=== PATIENT | male | born 1995 | race Hispanic/Latino ===

== ENCOUNTER 2017-03-28 20:39 | Emergency (ER) | payer OTHER ==
--- NOTE | 2017-03-28 22:02 | EDM.PDOC ---
ED HPI GENERAL MEDICAL PROBLEM - General Chief Complaint: Lower Extremity Injury/Pain Stated Complaint: right foot pain Time Seen by Provider: 03/28/17 20:52 Source of Information: Reports: Patient History Limitations: Reports: No Limitations - History of Present Illness INITIAL COMMENTS - FREE TEXT/NARRATIVE: Pt. states that he was doing hammer throw in track and field today, and feels that he twisted his R foot. He is able to bear weight, but with increased discomfort. Denies any numbness/tingling in the distal portion of the extremity. Onset Date: 03/28/17 Duration: Constant, Getting Worse Location: Reports: Lower Extremity, Right Quality: Reports: Ache, Sharp, Throbbing Severity: Severe Worsens with: Reports: Movement Right Feet Pain Score (Numeric/FACES): 8 - Related Data Allergies Allergy/AdvReac Type Severity Reaction Status Date / Time No Known Allergies Allergy Verified 03/28/17 20:42 Home Meds: Home Meds . [No Known Home Meds] 03/28/17 [History] Past Medical History - Past Health History Medical/Surgical History: Denies Medical/Surgical History Social & Family History - Tobacco Use Smoking Status *Q: Never Smoker Review of Systems - Review of Systems Review Of Systems: See Below Constitutional: Reports: No Symptoms Musculoskeletal: Reports: Foot Pain (right mid foot) Skin: Reports: No Symptoms Neurological: Reports: No Symptoms ED EXAM, GENERAL - Physical Exam Exam: See Below General Appearance: Alert, WD/WN, No Apparent Distress Extremities: Normal Inspection, Normal Range of Motion, Normal Capillary Refill , Limited Range of Motion, Other (pain to R mid foot region) Neurological: Alert, Oriented, CN II-XII Intact, Normal Cognition, Normal Gait, Normal Reflexes, No Motor/Sensory Deficits Skin Exam: Warm, Dry, Intact Course - Vital Signs Last Recorded V/S: Last Vital Signs Temp 36.9 C 03/28/17 20:43 Pulse 89 03/28/17 20:43 Resp 16 03/28/17 20:43 BP 157/79 H 03/28/17 20:43 Pulse Ox 99 03/28/17 20:43 - Orders/Labs/Meds Orders: Active Orders 24 hr Category Date Time Status Foot Comp Min 3V Rt [CR] Stat Exams 03/28/17 20:54 Taken Departure - Departure Time of Disposition: 22:03 Disposition: Home, Self-Care 01 Condition: Good Clinical Impression: Foot sprain - Discharge Information Instructions: Foot Sprain Referrals: PCP,Not In Area [Primary Care Provider] - Forms: ED Department Discharge Additional Instructions: Use crutches. Ice foot for 10-15 min every 1-2 hours. Ibuprofen 800mg every 8 hours as needed for pain. Elevate foot. Use BRET wrap for compression. - My Orders Last 24 Hours: My Active Orders 03/28/17 20:54 Foot Comp Min 3V Rt [CR] Stat - Assessment/Plan Last 24 Hours: My Active Orders 03/28/17 20:54 Foot Comp Min 3V Rt [CR] Stat
== END 2017-03-28 22:10 | disposition home or self-care (01) ==
LOC: VM.ED 20:39
DX: S93.601A Unspecified sprain of right foot, initial encounter (principal); X50.1XXA Overexertion from prolonged static or awkward postures, initial encounter
CPT/HCPCS: 73630-RT; 99283

== ENCOUNTER 2017-10-29 12:01 | Emergency (ER) | payer OTHER ==
[2017-10-29] MEDS ORDERED: Sodium Chloride 0.9% 1,000 ML IV ONE ×2 (12:04→12:51)
[2017-10-29] MEDS ORDERED: Sodium Chloride 0.9% 10 ML Syringe FLUSH PRN (12:04)
--- NOTE | 2017-10-29 12:12 | EDM.PDOC ---
ED HPI GENERAL MEDICAL PROBLEM - General Chief Complaint: General Stated Complaint: FOOTBALL INJURUY Time Seen by Provider: 10/29/17 12:03 Source of Information: Reports: Patient, EMS Notes Reviewed, RN, RN Notes Reviewed History Limitations: Reports: No Limitations - History of Present Illness INITIAL COMMENTS - FREE TEXT/NARRATIVE: Patient is brought to the ED at [facility] via EMS for severe muscle cramps. The patient had football practice this morning from 830-1030 and shortly after, the muscle cramps started. The patient was also submerged into an ice bath at some point. No trauma or injury. Patient's only complaint is muscle cramps. - Related Data Allergies Allergy/AdvReac Type Severity Reaction Status Date / Time No Known Allergies Allergy Verified 10/29/17 12:18 Home Meds: Home Meds . [No Known Home Meds] 03/28/17 [History] Past Medical History - Past Health History Medical/Surgical History: Denies Medical/Surgical History - Past Surgical History Musculoskeletal Surgical History: Reports: Other (See Below) Other Musculoskeletal Surgeries/Procedures:: surgical repair of left clavicle. ED ROS GENERAL - Review of Systems Review Of Systems: See Below Constitutional: Denies: Fever, Chills, Weakness Respiratory: Denies: Shortness of Breath, Cough Cardiovascular: Denies: Chest Pain, Palpitations GI/Abdominal: Denies: Abdominal Pain, Nausea, Vomiting Musculoskeletal: Reports: Muscle Pain, Muscle Stiffness Skin: Reports: No Symptoms Neurological: Reports: No Symptoms ED EXAM, GENERAL - Physical Exam Exam: See Below Exam Limited By: No Limitations General Appearance: Alert, No Apparent Distress Eye Exam: Bilateral Eye: Normal Inspection, PERRL Head: Atraumatic, Normocephalic Neck: Supple Respiratory/Chest: No Respiratory Distress, Lungs Clear, Normal Breath Sounds Cardiovascular: Normal Peripheral Pulses, Regular Rate, Rhythm Peripheral Pulses: 2+: Radial (L), Radial (R) GI/Abdominal: Normal Bowel Sounds, Soft, Non-Tender Extremities: Normal Inspection, Normal Capillary Refill Neurological: Alert, Oriented Skin Exam: Warm, Dry, Intact, Normal Color Course - Vital Signs Last Recorded V/S: Last Vital Signs Temp 36.3 C 10/29/17 12:02 Pulse 100 10/29/17 12:02 Resp 20 10/29/17 12:02 BP 168/82 H 10/29/17 12:02 Pulse Ox 100 10/29/17 12:02 - Orders/Labs/Meds Orders: Active Orders 24 hr Category Date Time Status Sodium Chloride 0.9% [Normal Saline] 1,000 ml Med 10/29/17 12:04 Active IV ONETIME Sodium Chloride 0.9% [Saline Flush] Med 10/29/17 12:04 Active 10 ml FLUSH ASDIRECTED PRN Peripheral IV Insertion Adult [OM.PC] Routine Oth 10/29/17 12:04 Ordered Medication Orders Sodium Chloride (Normal Saline) 1,000 mls @ 999 mls/hr IV ONETIME ONE Stop: 10/29/17 13:04 Last Admin: 10/29/17 12:08 Dose: 999 mls/hr Sodium Chloride (Saline Flush) 10 ml FLUSH ASDIRECTED PRN PRN Reason: Keep Vein Open Labs: Laboratory Tests 10/29/17 Range/Units 12:24 Sodium 135 L (136-145) mmol/L Potassium 3.4 L (3.5-5.1) mmol/L Chloride 96 L (98-107) mmol/L Carbon Dioxide 17 L (21-32) mmol/L Anion Gap 25.4 H (10-20) mmol/L BUN 18 (7-18) mg/dL Creatinine 1.8 H (0.70-1.30) mg/dL Est Cr Clr Drug Dosing TNP Estimated GFR (MDRD) 48 Glucose 90 (74-106) mg/dL Calcium 9.8 (8.5-10.1) mg/dL Magnesium 2.2 (1.8-2.4) mg/dL Meds: Medications Generic Name Dose Route Start Last Admin Trade Name Freq PRN Reason Stop Dose Admin Sodium Chloride 1,000 mls @ 999 mls/hr 10/29/17 12:04 10/29/17 12:08 Normal Saline IV 10/29/17 13:04 999 mls/hr ONETIME ONE Administration Sodium Chloride 10 ml 10/29/17 12:04 Saline Flush FLUSH ASDIRECTED PRN Keep Vein Open Departure - Departure Time of Disposition: 12:49 Disposition: Home, Self-Care 01 Condition: Good Clinical Impression: Muscle cramps, Acute kidney injury, Severe dehydration - Discharge Information *PRESCRIPTION DRUG MONITORING PROGRAM REVIEWED*: Not Applicable *COPY OF PRESCRIPTION DRUG MONITORING REPORT IN PATIENT DC: Not Applicable Instructions: Dehydration, Adult, Acute Kidney Injury, Adult, Muscle Cramps and Spasms Forms: ED Department Discharge Additional Instructions: 1. Stay well hydrated and rest 2. STRONGLY recommend NO sporting activities until Thursday at the earliest 3. Drink fluids with electrolytes 4. Call with any questions - Problem List Review Problem List Initiated/Reviewed/Updated: Yes - My Orders Last 24 Hours: My Active Orders 10/29/17 12:04 Sodium Chloride 0.9% [Normal Saline] 1,000 ml IV ONETIME Sodium Chloride 0.9% [Saline Flush] 10 ml FLUSH ASDIRECTED PRN Peripheral IV Insertion Adult [OM.PC] Routine - Assessment/Plan Last 24 Hours: My Active Orders 10/29/17 12:04 Sodium Chloride 0.9% [Normal Saline] 1,000 ml IV ONETIME Sodium Chloride 0.9% [Saline Flush] 10 ml FLUSH ASDIRECTED PRN Peripheral IV Insertion Adult [OM.PC] Routine Assessment:: Muscle cramps JESSICA secondary to dehydration
[2017-10-29 12:44] LABS: CHLORIDE,CL 96 mmol/L (98-107); SODIUM,NA 135 mmol/L (136-145)
[2017-10-29 12:46] LABS: ANION GAP 25.4 mmol/L (10-20)
== END 2017-10-29 13:37 | disposition home or self-care (01) ==
LOC: VM.ED 12:01
DX: E86.0 Dehydration (principal); N17.9 Acute kidney failure, unspecified; R25.2 Cramp and spasm
CPT/HCPCS: 36415; 80048; 83735; 96360; 99284; J7030

== ENCOUNTER 2018-10-24 18:41 | Emergency (ER) | payer OTHER ==
--- NOTE | 2018-10-24 19:45 | EDM.PDOC ---
ED HPI GENERAL MEDICAL PROBLEM - General Chief Complaint: Lower Extremity Injury/Pain Stated Complaint: CRAMPING Time Seen by Provider: 10/24/18 19:26 Source of Information: Reports: Patient History Limitations: Reports: No Limitations - History of Present Illness INITIAL COMMENTS - FREE TEXT/NARRATIVE: Patient states over the last 2 days he's been having intermittent thigh cramping that has been alternating between the left than the right he has a history of rhabdomyolysis and he does want come get checked out and make sure was not same thing he states he has been eating and drinking appropriately. He has no other complaints. He states he has been had increased activity with football practice but other than the intermittent leg cramping he feels fine. States he feels fine overall he denies any headache nausea vomiting abdominal pain cramping and any other muscle group Duration: Day(s): Quality: Reports: Other (Cramping) Severity: Mild Associated Symptoms: Reports: No Other Symptoms - Related Data Allergies Allergy/AdvReac Type Severity Reaction Status Date / Time No Known Allergies Allergy Verified 10/24/18 18:51 Home Meds: Home Meds . [No Known Home Meds] 03/28/17 [History] Past Medical History - Past Health History Medical/Surgical History: Denies Medical/Surgical History - Past Surgical History Musculoskeletal Surgical History: Reports: Other (See Below) Other Musculoskeletal Surgeries/Procedures:: surgical repair of left clavicle. Social & Family History - Tobacco Use Smoking Status *Q: Current Every Day Smoker Years of Tobacco use: 1 Packs/Tins Daily: 1 - Caffeine Use Caffeine Use: Reports: None - Recreational Drug Use Recreational Drug Use: No Review of Systems - Review of Systems Review Of Systems: See Below Constitutional: Reports: No Symptoms Eyes: Reports: No Symptoms Ears: Reports: No Symptoms Nose: Reports: No Symptoms Mouth/Throat: Reports: No Symptoms Respiratory: Reports: No Symptoms Cardiovascular: Reports: No Symptoms GI/Abdominal: Reports: No Symptoms Genitourinary: Reports: No Symptoms Musculoskeletal: Reports: Muscle Pain. Denies: Foot Pain, Joint Pain, Joint Swelling Skin: Reports: No Symptoms Neurological: Reports: No Symptoms Psychiatric: Reports: No Symptoms ED EXAM, GENERAL - Physical Exam Exam: See Below Exam Limited By: No Limitations General Appearance: Alert, WD/WN, No Apparent Distress. No: Moderate Distress Eye Exam: Bilateral Eye: EOMI (PERRLA) Nose: Normal Inspection, Normal Mucosa Throat/Mouth: Normal Inspection, Normal Lips, Normal Teeth, Normal Gums, Normal Oropharynx, Normal Voice, No Airway Compromise, Other (Moist membranes) Neck: Non-Tender, Full Range of Motion Respiratory/Chest: No Respiratory Distress, Lungs Clear, Normal Breath Sounds, No Accessory Muscle Use, Chest Non-Tender Cardiovascular: Normal Peripheral Pulses, Regular Rate, Rhythm, No Edema, No Gallop GI/Abdominal: Normal Bowel Sounds, Soft, Non-Tender, No Organomegaly Back Exam: Full Range of Motion Extremities: Normal Inspection, Normal Range of Motion, Non-Tender Neurological: Alert, Oriented, CN II-XII Intact, Normal Cognition, Normal Gait, No Motor/Sensory Deficits Psychiatric: Normal Affect, Normal Mood Skin Exam: Warm, Dry, Intact, Normal Color, No Rash Course - Vital Signs Text/Narrative:: Patient educated to increase fluids Gatorade and water actively stretched any problems follow with her primary care provider Last Recorded V/S: Last Vital Signs Temp 36.8 C 10/24/18 18:53 Pulse 72 10/24/18 18:53 Resp 14 10/24/18 18:53 BP 132/70 10/24/18 18:53 Pulse Ox 99 10/24/18 18:53 Departure - Departure Time of Disposition: 19:35 Disposition: Home, Self-Care 01 Condition: Good Clinical Impression: Muscle cramping - Discharge Information *PRESCRIPTION DRUG MONITORING PROGRAM REVIEWED*: No *COPY OF PRESCRIPTION DRUG MONITORING REPORT IN PATIENT DC: No Instructions: Muscle Cramps and Spasms, [id number] Referrals: PCP,None [Primary Care Provider] - Forms: ED Department Discharge Additional Instructions: Make sure he drinks plenty of water/Gatorade follow-up with primary care provider in the next 2-3 days Return to the emergency room for anything changes or gets worse - Problem List & Annotations (1) Muscle cramps SNOMED Code(s): 42177152 Code(s): R25.2 - CRAMP AND SPASM Status: Acute Current Visit: Yes
== END 2018-10-24 19:51 | disposition home or self-care (01) ==
LOC: VM.ED 18:41 → SUPCPDRO 18:41 → VM.ED 19:51
DX: R25.2 Cramp and spasm (principal); F17.210 Nicotine dependence, cigarettes, uncomplicated
CPT/HCPCS: 99283; 99283-GF

== ENCOUNTER 2019-12-28 10:36 | Emergency (ER) | payer OTHER ==
[2019-12-28] MEDS ORDERED: Ketorolac 30 MG/ML SDV IM ONE (11:07)
[2019-12-28] MEDS ORDERED: Orphenadrine 60 MG/2 ML Inj IM STA (11:07)
--- NOTE | 2019-12-28 11:14 | EDM.PDOC ---
ED HPI GENERAL MEDICAL PROBLEM - General Stated Complaint: LT KNEE Time Seen by Provider: 12/28/19 11:01 Source of Information: Reports: Patient History Limitations: Reports: No Limitations - History of Present Illness INITIAL COMMENTS - FREE TEXT/NARRATIVE: Patient comes emergency department today with complaints of a left knee injury. About 2 weeks ago and the patient was playing football he had an injury where he was struck in the medial aspect of the left knee. He has been seeing the personal trainer over the past couple of weeks and it has gotten better. Yesterday he woke up his knee was quite swollen and increased pain. He noticed that his knee has been a little bit more warm. He has never had any breaks in the skin laceration over the past couple of days. He has had no fever or chills. He has quite a bit of increased pain to the left knee. He has had no new injury to his left knee. Although he continues to keep working out quite extensively for football with weights and training. He is able to ambulate with quite a bit of pain. Left Knee Pain Score (Numeric/FACES): 7 - Related Data Allergies Allergy/AdvReac Type Severity Reaction Status Date / Time No Known Allergies Allergy Verified 12/28/19 12:07 Home Meds: Home Meds Hydrocodone/Acetaminophen [[place] 5-325 Tablet] 1 each PO Q6HR PRN #12 tablet 12/28/19 [Rx] Past Medical History - Past Health History Medical/Surgical History: Denies Medical/Surgical History - Past Surgical History Musculoskeletal Surgical History: Reports: Other (See Below) Other Musculoskeletal Surgeries/Procedures:: surgical repair of left clavicle. Social & Family History - Caffeine Use Caffeine Use: Reports: None Review of Systems - Review of Systems Review Of Systems: Comprehensive ROS is negative, except as noted in HPI. ED EXAM, GENERAL - Physical Exam Exam: See Below Exam Limited By: No Limitations General Appearance: Alert, WD/WN, No Apparent Distress Respiratory/Chest: No Respiratory Distress Cardiovascular: Normal Peripheral Pulses, Regular Rate, Rhythm Peripheral Pulses: 2+: Popliteal (L), Popliteal (R), Posterior Tibial (L), Posterior Tibial (R), Dorsalis Pedis (L), Dorsalis Pedis (R) Extremities: No: Normal Inspection (Patient's left knee is quite a bit more swollen than the right knee. Primarily in the prepatellar region. There is questionably may be some more warmth but no erythema. There is no joint effusion. He has tenderness throughout the knee. There is no overt bony deformity. There is no crepitus with flexion and extension. He has positive varus and valgus stress pain. Negative Lockman's and anterior drawer sign. He has normal patellar slide. There is no breaks in the skin abrasions or other signs of opening to the skin. There is no erythema injection of the area.) Neurological: Alert, Oriented, No Motor/Sensory Deficits Psychiatric: Normal Affect, Normal Mood Skin Exam: Warm, Dry, Intact, Normal Color Course - Vital Signs Last Recorded V/S: Last Vital Signs Temp 97.9 F 12/28/19 10:45 Pulse 82 12/28/19 10:45 Resp 16 12/28/19 10:45 BP 141/69 H 12/28/19 10:45 Pulse Ox 98 12/28/19 10:45 - Orders/Labs/Meds Labs: Laboratory Tests 12/28/19 12/28/19 Range/Units 11:18 11:18 WBC 16.3 H (4.0-10.0) x10^3/uL RBC 4.79 (4.5-6.0) x10^6/uL Hgb 14.6 (14.0-18.0) g/dL Hct 42.6 (40.0-52.0) % MCV 88.9 (78.0-93.0) fL MCH 30.5 (26.0-32.0) pg MCHC 34.3 (32.0-36.0) g/dL RDW Coeff of Kesha 12.7 (10.0-15.0) % Plt Count 232 (130-400) x10^3/uL Neut % (Auto) 79.9 (50.0-80.0) % Lymph % (Auto) 10.3 L (25.0-50.0) % [place] % (Auto) 9.2 (2.0-11.0) % Eos % (Auto) 0.4 (0.0-4.0) % Baso % (Auto) 0.2 (0.2-1.2) % Sodium 138 (136-145) mmol/L Potassium 4.0 (3.5-5.1) mmol/L Chloride 100 (98-107) mmol/L Carbon Dioxide 29 D (21-32) mmol/L Anion Gap 13.0 (10-20) mmol/L BUN 16 (7-18) mg/dL Creatinine 1.2 (0.70-1.30) mg/dL Est Cr Clr Drug Dosing TNP Estimated GFR (MDRD) > 60 Glucose 100 (74-106) mg/dL Calcium 9.1 (8.5-10.1) mg/dL C-Reactive Protein 11.9 H (<=0.9) mg/dL Meds: Medications Discontinued Medications Generic Name Dose Route Start Last Admin Trade Name Milly PRN Reason Stop Dose Admin Ketorolac Tromethamine 30 mg 12/28/19 11:07 12/28/19 11:18 Toradol IM 12/28/19 11:08 30 mg ONETIME ONE Administration Orphenadrine Citrate 60 mg 12/28/19 11:07 12/28/19 11:18 Norflex IM 12/28/19 11:08 60 mg NOW STA Administration - Radiology Interpretation Free Text/Narrative:: Tray is negative for any bony abnormality but there is some soft tissue swelling per radiology. - Re-Assessments/Exams Free Text/Narrative Re-Assessment/Exam: 12/28/19 18:55 The patient had a mildly elevated white blood cell count he has a normal differential. He has a mildly elevated CRP. The knee is swollen and maybe a little bit warmer than the other but the likelihood of a septic arthritis without any break in the skin is very unlikely. He has had no surgeries recently. He has no fever chills generalized malaise or fatigue. This is really the presentation of prepatellar bursitis which can have some warmth and swelling to it as well. We will put him on knee immobilizer and crutches and have him follow-up in the next week. If at anytime he develops a fever body aches chills or his knee gets worse he needs to recheck immediately. He is understanding of this and his questions are answered. Departure - Departure Time of Disposition: 12:30 Disposition: Home, Self-Care 01 Clinical Impression: Prepatellar bursitis Qualifiers: Laterality: left Qualified Code(s): M70.42 - Prepatellar bursitis, left knee - Discharge Information Prescriptions: Hydrocodone/Acetaminophen [[place] 5-325 Tablet] 1 each PO Q6HR PRN #12 tablet PRN Reason: Pain Instructions: Crutch Use, Adult, [id number], Prepatellar Bursitis Rehab- [facility], How to Use a Knee Immobilizer, [id number], Pain Medicine Instructions, [id number] Referrals: PCP,Not In Area [Primary Care Provider] - Forms: ED Department Discharge Additional Instructions: Tylenol and or Ibuprofen as needed for pain. Ice to the knee Knee immobilizer at all times. Crutches with weight as tolerated without pain. If pain not controlled with above. [place] 1 tablet every 6 hours with food as needed for pain. Caution sedation. RX sent to [facility]. Return to the ED if new or worsening. ESPECIALLY IF SWELLING IS WORSENING AND YOU DEVELOP A FEVER Follow up with ortho in the next week if not improving sooner if worse. Sepsis Event Note (ED) - Focused Exam Vital Signs: Vital Signs Temp Pulse Resp BP Pulse Ox 12/28/19 10:45 97.9 F 82 16 141/69 H 98
[2019-12-28 11:39] LABS: CHLORIDE,CL 100 mmol/L (98-107); SODIUM,NA 138 mmol/L (136-145)
--- NOTE | 2019-12-28 11:55 | CR ---
[id number] RAD/RAD Knee Left 3V EXAM: RAD Knee Left 3V CLINICAL DATA: PATELLAR BURSITIS COMPARISON: NO PREVIOUS SIMILAR EXAM IS AVAILABLE. FINDINGS: Soft tissue swelling is seen No fracture or dislocation is seen. There is no radiopaque foreign body in the soft tissues. There is no air in the soft tissues. There is no cortical thickening or periosteal reaction either. IMPRESSION: SOFT TISSUE SWELLING ONLY Fernando Nelson MD 12/28/19 [id number] Thank you for allowing us to participate in the care of your patient.
== END 2019-12-28 13:12 | disposition home or self-care (01) ==
LOC: SUPCPDRO 10:36 → VM.ED 10:36
DX: M70.42 Prepatellar bursitis, left knee (principal)
CPT/HCPCS: 36415; 73562-LT; 80048; 85025; 86140; 96372; 99283; 99283-25; J1885; J2360

== ENCOUNTER 2020-10-08 18:29 | Observation (INO) | payer MEDICAID ==
[2020-10-08] MEDS ORDERED: Sodium Chloride 0.9% 10 ML Syringe FLUSH PRN (18:38)
[2020-10-08] MEDS ORDERED: Morphine 4 MG/ML Syringe IVPUSH ONE (18:39)
[2020-10-08] MEDS ORDERED: Sodium Chloride 0.9% 1,000 ML IV SCH ×2 (18:45→21:30)
[2020-10-08 19:28] LABS: CHLORIDE,CL 96 mmol/L (98-107); SODIUM,NA 135 mmol/L (136-145)
[2020-10-08 19:29] LABS: ANION GAP 22.6 mmol/L (5-15)
--- NOTE | 2020-10-08 20:10 | EDM.PDOC ---
ED HPI GENERAL MEDICAL PROBLEM - General Chief Complaint: Exposure to Heat or Cold Time Seen by Provider: 10/08/20 18:30 Source of Information: Reports: Patient, Other History Limitations: Reports: No Limitations - History of Present Illness INITIAL COMMENTS - FREE TEXT/NARRATIVE: Pt. presents to ER with complaints of muscle cramps/heat related complaints. 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 Pt. states that he was in practice today and thinks he overexerted himself. Pt. has a history of previous exertional heat related illness/rhabdomyolysis in the past with previous JESSICA. Pt. is in his last year of eligibility for sports. Pt. denies any nausea. No chest pain or shortness of breath. He complains of widespread muscle cramping/pain to arms, legs, back, neck, and abdominal muscles. He denies any lightheadedness. No palpitations. No fever or chills. Denies any recent illnesses. Previous episode of rhabdomyolysis was in 2018. He has not had any labs since then, but at that time, his creat was 1.0 on recheck in clinic (had been up to 1.8 when the initial accident happened). He states that he has been attempting to hydrate as much as possible. Onset: Today Onset Date: 10/08/20 Location: Reports: Generalized Severity: Severe Generalized Pain Score (Numeric/FACES): 7 - Related Data Allergies Allergy/AdvReac Type Severity Reaction Status Date / Time No Known Allergies Allergy Verified 12/28/19 12:07 Home Meds: Home Meds Hydrocodone/Acetaminophen [[place] 5-325 Tablet] 1 each PO Q6HR PRN #12 tablet 12/28/19 [Rx] Past Medical History - Past Health History Medical/Surgical History: Denies Medical/Surgical History - Past Surgical History Musculoskeletal Surgical History: Reports: Other (See Below) Other Musculoskeletal Surgeries/Procedures:: surgical repair of left clavicle. Social & Family History - Tobacco Use Tobacco Use Status *Q: Never Tobacco User - Caffeine Use Caffeine Use: Reports: None ED ROS GENERAL - Review of Systems Review Of Systems: See Below Constitutional: Reports: No Symptoms HEENT: Reports: No Symptoms Respiratory: Reports: No Symptoms Cardiovascular: Reports: No Symptoms Endocrine: Reports: No Symptoms GI/Abdominal: Reports: Abdominal Pain (diffuse abdominal cramping) : Reports: No Symptoms Musculoskeletal: Reports: No Symptoms Skin: Reports: No Symptoms Neurological: Reports: No Symptoms Psychiatric: Reports: No Symptoms Hematologic/Lymphatic: Reports: No Symptoms Immunologic: Reports: No Symptoms ED EXAM, GENERAL - Physical Exam Exam: See Below Exam Limited By: No Limitations General Appearance: Alert, WD/WN, No Apparent Distress Eye Exam: Bilateral Eye: EOMI, PERRL Nose: Normal Inspection, Normal Mucosa, No Blood Throat/Mouth: Normal Inspection, Normal Lips, Normal Oropharynx, Normal Voice Head: Atraumatic Neck: Normal Inspection, Supple, Non-Tender Respiratory/Chest: No Respiratory Distress, Lungs Clear, Normal Breath Sounds, No Accessory Muscle Use, Chest Non-Tender Cardiovascular: Normal Peripheral Pulses, Regular Rate, Rhythm, No Edema, No JVD GI/Abdominal: Soft, No Distention, No Mass, Tender (diffuse abdominal cramping) (Male) Exam: Deferred Rectal (Males) Exam: Deferred Back Exam: Normal Inspection, Full Range of Motion, Muscle Spasm Extremities: Normal Inspection, Normal Range of Motion, Arm Pain, Leg Pain Neurological: Alert, Oriented, CN II-XII Intact, Normal Cognition, Normal Gait Psychiatric: Normal Affect, Normal Mood Skin Exam: Warm, Normal Color, No Rash, Diaphoretic Lymphatic: No Adenopathy Course - Vital Signs Last Recorded V/S: Last Vital Signs Temp 35.5 C L 10/08/20 20:50 Pulse 77 10/08/20 20:50 Resp 18 10/08/20 20:50 BP 137/85 10/08/20 20:50 Pulse Ox 98 10/08/20 20:50 - Orders/Labs/Meds Orders: Active Orders 24 hr Category Date Time Status Sodium Chloride 0.9% [Normal Saline] 1,000 ml Med 10/08/20 18:45 Active IV ASDIRECTED Sodium Chloride 0.9% [Saline Flush] Med 10/08/20 18:38 Active 10 ml FLUSH ASDIRECTED PRN Peripheral IV Insertion Adult [OM.PC] Routine Oth 10/08/20 18:39 Ordered Medication Orders Acetaminophen (Acetaminophen 325 Mg Tab) 650 mg PO Q4H PRN PRN Reason: Pain Sodium Chloride (Normal Saline) 1,000 mls @ 1,000 mls/hr IV ASDIRECTED PETER Last Admin: 10/08/20 18:40 Dose: 1,000 mls/hr Documented by: JANESSA Sodium Chloride (Normal Saline) 1,000 mls @ 250 mls/hr IV ASDIRECTED PETER Sodium Chloride (Normal Saline) 1,000 mls @ 500 mls/hr IV ASDIRECTED PETER Morphine Sulfate (Morphine 4 Mg/Ml Syringe) 4 mg IVPUSH Q4H PRN PRN Reason: Pain Sodium Chloride (Sodium Chloride 0.9% 10 Ml Syringe) 10 ml FLUSH ASDIRECTED PRN PRN Reason: Keep Vein Open Labs: Laboratory Tests 10/08/20 10/08/20 10/08/20 Range/Units 18:48 18:48 18:48 WBC 12.1 H (4.0-10.0) x10^3/uL RBC 5.13 (4.5-6.0) x10^6/uL Hgb 15.8 (14.0-18.0) g/dL Hct 44.2 (40.0-52.0) % MCV 86.2 (78.0-93.0) fL MCH 30.8 (26.0-32.0) pg MCHC 35.7 (32.0-36.0) g/dL RDW Coeff of Kesha 12.8 (10.0-15.0) % Plt Count 275 (130-400) x10^3/uL Neut % (Auto) 70.7 (50.0-80.0) % Lymph % (Auto) 20.2 L (25.0-50.0) % [place] % (Auto) 7.1 (2.0-11.0) % Eos % (Auto) 1.7 (0.0-4.0) % Baso % (Auto) 0.3 (0.2-1.2) % PT 10.4 (9.9-12.5) SEC INR 0.9 L (2.0-3.5) APTT (25.6-32.8) SEC Sodium 135 L (136-145) mmol/L Potassium 3.6 (3.5-5.1) mmol/L Chloride 96 L (98-107) mmol/L Carbon Dioxide 20 L (21-32) mmol/L Anion Gap 22.6 H (5-15) mmol/L BUN 16 (7-18) mg/dL Creatinine 1.9 H (0.70-1.30) mg/dL Est Cr Clr Drug Dosing 62.43 mL/min Estimated GFR (MDRD) 44 Glucose 105 H (70-99) mg/dL Lactic Acid (0.4-2.0) mmol/L Calcium 9.5 (8.5-10.1) mg/dL Corrected Calcium 8.9 (8.5-10.1) mg/dL Phosphorus 4.4 (2.6-4.7) mg/dL Magnesium 2.1 (1.8-2.4) mg/dL Total Bilirubin 0.7 (0.2-1.0) mg/dL AST 41 H (15-37) U/L ALT 54 (16-63) U/L Alkaline Phosphatase 67 (46-116) U/L Creatine Kinase (39-308) U/L C-Reactive Protein < 0.2 (<=0.9) mg/dL Total Protein 8.9 H (6.4-8.2) g/dL Albumin 4.8 (3.4-5.0) g/dL Globulin 4.1 Albumin/Globulin Ratio 1.17 Urine Color (YELLOW) Urine Appearance (CLEAR) Urine pH (5.0-8.0) Ur Specific Carter Urine Protein (NEGATIVE) mg/dL Urine Glucose (UA) (NEGATIVE) mg/dL Urine Ketones (NEGATIVE) mg/dL Urine Occult Blood (NEGATIVE) Urine Nitrite (NEGATIVE) Urine Bilirubin (NEGATIVE) Urine Urobilinogen (0.2) EU/dL Ur Leukocyte Esterase (NEGATIVE) Urine RBC (NOT SEEN) /HPF Urine WBC (NOT SEEN) /HPF Ur Squamous Epith Cells (NOT SEEN) /HPF Urine Bacteria (NOT SEEN) /HPF Urine Mucus (NOT SEEN) /LPF 10/08/20 10/08/20 10/08/20 Range/Units 18:48 18:48 18:48 WBC (4.0-10.0) x10^3/uL RBC (4.5-6.0) x10^6/uL Hgb (14.0-18.0) g/dL Hct (40.0-52.0) % MCV (78.0-93.0) fL MCH (26.0-32.0) pg MCHC (32.0-36.0) g/dL RDW Coeff of Kesha (10.0-15.0) % Plt Count (130-400) x10^3/uL Neut % (Auto) (50.0-80.0) % Lymph % (Auto) (25.0-50.0) % [place] % (Auto) (2.0-11.0) % Eos % (Auto) (0.0-4.0) % Baso % (Auto) (0.2-1.2) % PT (9.9-12.5) SEC INR (2.0-3.5) APTT 22.5 L (25.6-32.8) SEC Sodium (136-145) mmol/L Potassium (3.5-5.1) mmol/L Chloride (98-107) mmol/L Carbon Dioxide (21-32) mmol/L Anion Gap (5-15) mmol/L BUN (7-18) mg/dL Creatinine (0.70-1.30) mg/dL Est Cr Clr Drug Dosing mL/min Estimated GFR (MDRD) Glucose (70-99) mg/dL Lactic Acid 6.2 H* (0.4-2.0) mmol/L Calcium (8.5-10.1) mg/dL Corrected Calcium (8.5-10.1) mg/dL Phosphorus (2.6-4.7) mg/dL Magnesium (1.8-2.4) mg/dL Total Bilirubin (0.2-1.0) mg/dL AST (15-37) U/L ALT (16-63) U/L Alkaline Phosphatase (46-116) U/L Creatine Kinase 1099 H* (39-308) U/L C-Reactive Protein (<=0.9) mg/dL Total Protein (6.4-8.2) g/dL Albumin (3.4-5.0) g/dL Globulin Albumin/Globulin Ratio Urine Color (YELLOW) Urine Appearance (CLEAR) Urine pH (5.0-8.0) Ur Specific Carter Urine Protein (NEGATIVE) mg/dL Urine Glucose (UA) (NEGATIVE) mg/dL Urine Ketones (NEGATIVE) mg/dL Urine Occult Blood (NEGATIVE) Urine Nitrite (NEGATIVE) Urine Bilirubin (NEGATIVE) Urine Urobilinogen (0.2) EU/dL Ur Leukocyte Esterase (NEGATIVE) Urine RBC (NOT SEEN) /HPF Urine WBC (NOT SEEN) /HPF Ur Squamous Epith Cells (NOT SEEN) /HPF Urine Bacteria (NOT SEEN) /HPF Urine Mucus (NOT SEEN) /LPF 10/08/20 Range/Units 19:22 WBC (4.0-10.0) x10^3/uL RBC (4.5-6.0) x10^6/uL Hgb (14.0-18.0) g/dL Hct (40.0-52.0) % MCV (78.0-93.0) fL MCH (26.0-32.0) pg MCHC (32.0-36.0) g/dL RDW Coeff of Kesha (10.0-15.0) % Plt Count (130-400) x10^3/uL Neut % (Auto) (50.0-80.0) % Lymph % (Auto) (25.0-50.0) % [place] % (Auto) (2.0-11.0) % Eos % (Auto) (0.0-4.0) % Baso % (Auto) (0.2-1.2) % PT (9.9-12.5) SEC INR (2.0-3.5) APTT (25.6-32.8) SEC Sodium (136-145) mmol/L Potassium (3.5-5.1) mmol/L Chloride (98-107) mmol/L Carbon Dioxide (21-32) mmol/L Anion Gap (5-15) mmol/L BUN (7-18) mg/dL Creatinine (0.70-1.30) mg/dL Est Cr Clr Drug Dosing mL/min Estimated GFR (MDRD) Glucose (70-99) mg/dL Lactic Acid (0.4-2.0) mmol/L Calcium (8.5-10.1) mg/dL Corrected Calcium (8.5-10.1) mg/dL Phosphorus (2.6-4.7) mg/dL Magnesium (1.8-2.4) mg/dL Total Bilirubin (0.2-1.0) mg/dL AST (15-37) U/L ALT (16-63) U/L Alkaline Phosphatase (46-116) U/L Creatine Kinase (39-308) U/L C-Reactive Protein (<=0.9) mg/dL Total Protein (6.4-8.2) g/dL Albumin (3.4-5.0) g/dL Globulin Albumin/Globulin Ratio Urine Color Yellow (YELLOW) Urine Appearance Clear (CLEAR) Urine pH 5.5 (5.0-8.0) Ur Specific Carter 1.025 Urine Protein 100 H (NEGATIVE) mg/dL Urine Glucose (UA) Negative (NEGATIVE) mg/dL Urine Ketones Negative (NEGATIVE) mg/dL Urine Occult Blood Trace-lysed H (NEGATIVE) Urine Nitrite Negative (NEGATIVE) Urine Bilirubin Negative (NEGATIVE) Urine Urobilinogen 0.2 (0.2) EU/dL Ur Leukocyte Esterase Negative (NEGATIVE) Urine RBC 0-5 (NOT SEEN) /HPF Urine WBC 0-5 (NOT SEEN) /HPF Ur Squamous Epith Cells Not seen (NOT SEEN) /HPF Urine Bacteria Rare (NOT SEEN) /HPF Urine Mucus Few H (NOT SEEN) /LPF Meds: Medications Generic Name Dose Route Start Last Admin Trade Name Freq PRN Reason Stop Dose Admin Acetaminophen 650 mg 10/08/20 21:26 Acetaminophen 325 Mg Tab PO Q4H PRN Pain Sodium Chloride 1,000 mls @ 1,000 mls/hr 10/08/20 18:45 10/08/20 18:40 Normal Saline IV 1,000 mls/hr ASDIRECTED PETER Administration Sodium Chloride 1,000 mls @ 250 mls/hr 10/08/20 21:30 Normal Saline IV ASDIRECTED PETER Sodium Chloride 1,000 mls @ 500 mls/hr 10/08/20 21:30 Normal Saline IV ASDIRECTED PETER Morphine Sulfate 4 mg 10/08/20 21:25 Morphine 4 Mg/Ml Syringe IVPUSH Q4H PRN Pain Sodium Chloride 10 ml 10/08/20 18:38 Sodium Chloride 0.9% 10 Ml Syringe FLUSH ASDIRECTED PRN Keep Vein Open Discontinued Medications Generic Name Dose Route Start Last Admin Trade Name Freq PRN Reason Stop Dose Admin Morphine Sulfate 4 mg 10/08/20 18:39 10/08/20 18:46 Morphine 4 Mg/Ml Syringe IVPUSH 10/08/20 18:40 4 mg ONETIME ONE Administration Departure - Departure Time of Disposition: 20:45 Disposition: Refer to Observation Condition: Fair Clinical Impression: Acute kidney injury, Heat exhaustion, Rhabdomyolysis - Discharge Information Sepsis Event Note (ED) - Evaluation Sepsis Screening Result: No Definite Risk - Focused Exam Vital Signs: Vital Signs Temp Pulse Resp BP Pulse Ox 10/08/20 18:30 36.6 C 109 H 28 H 142/90 H 100 - My Orders Last 24 Hours: My Active Orders 10/08/20 18:38 Sodium Chloride 0.9% [Saline Flush] 10 ml FLUSH ASDIRECTED PRN 10/08/20 18:39 Peripheral IV Insertion Adult [OM.PC] Routine 10/08/20 18:45 Sodium Chloride 0.9% [Normal Saline] 1,000 ml IV ASDIRECTED - Assessment/Plan Admission H&P: Please use this note as an admission H&P Last 24 Hours: My Active Orders 10/08/20 18:38 Sodium Chloride 0.9% [Saline Flush] 10 ml FLUSH ASDIRECTED PRN 10/08/20 18:39 Peripheral IV Insertion Adult [OM.PC] Routine 10/08/20 18:45 Sodium Chloride 0.9% [Normal Saline] 1,000 ml IV ASDIRECTED Plan: Pt. will be admitted observation. He is code 1. He was given 1 liter of NS in ER. He will be given a second liter over 2 hours, then at 250ml/hr overnight. Will repeat lactic acid tonight, as well as chemistry, lactate, and CPK in AM. He will be given tylenol and small doses of morphine as needed for pain. Discussed pathophysiology of rhabdomyolysis and heat exhaustion with the patient. He is prone to this, and patients are prone to recurrent heat related illness after the initial event. He will need to be out of practice for a least a week. We will have him follow-up in clinic in 7 days for recheck of labs/symptoms. He has not had labs since 2018, so his baseline renal function is unclear.
[2020-10-08] MEDS ORDERED: Morphine 4 MG/ML Syringe IVPUSH PRN (21:25)
[2020-10-08] MEDS ORDERED: Acetaminophen 325 MG Tab PO PRN (21:26)
[2020-10-08] MEDS ORDERED: Ondansetron 4 MG/2 ML SDV IVPUSH PRN (21:29)
[2020-10-08] MEDS ORDERED: Take Home: Acetaminophen/Codeine 300 MG/30 MG, 5 Tab Pack PO ONE (22:30)
[2020-10-08] MEDS: Sodium Chloride 0.9% 1,000 ML IV SCH (23:59)
[2020-10-09] MEDS: Sodium Chloride 0.9% 1,000 ML IV SCH (04:01)
[2020-10-09 06:26] VITALS: BP 135/51; PULSE 66
[2020-10-09 07:37] LABS: CHLORIDE,CL 106 mmol/L (98-107); SODIUM,NA 140 mmol/L (136-145)
[2020-10-09] MEDS ORDERED: Sodium Chloride 0.9% 1,000 ML IV ONE (08:06)
--- NOTE | 2020-10-10 18:34 | PCM.DCSUM1 ---
Discharge Summary - Hospital Course Free Text/Narrative:: Pt. was admitted with rhabdomyolysis and lactic acidosis secondary to heat exhaustion. Pt. did well overnight. He got a total of approx. 6 liters of IV NS overnight. Urine output has been copious. Pt. lactic acid and renal function have improved. CPK was actually mildly elevated, but will hopefully start trending down with continued hydration. Diagnosis: Stroke: No - Discharge Data Discharge Date: 10/09/20 Discharge Disposition: Home, Self-Care 01 Condition: Good - Referral to Home Health Date of Face to Face Encounter: 10/09/20 Primary Care Physician: Noe Gonzalez NP - Discharge Diagnosis/Problem(s) (1) Acute kidney injury SNOMED Code(s): 85661133, 87373418 ICD Code: N17.9 - ACUTE KIDNEY FAILURE, UNSPECIFIED Status: Acute (2) Heat exhaustion SNOMED Code(s): 19816090 ICD Code: T67.5XXA - HEAT EXHAUSTION, UNSPECIFIED, INITIAL ENCOUNTER Status: Acute (3) Rhabdomyolysis SNOMED Code(s): 119189354 ICD Code: M62.82 - RHABDOMYOLYSIS Status: Acute - Patient Instructions Diet: No Alcoholic Beverages Activity: Bedrest, No Lifting Over 10 Pounds - Discharge Plan Home Medications: Home Meds Hydrocodone/Acetaminophen [[place] 5-325 Tablet] 1 each PO Q6HR PRN #12 tablet 12/28/19 [Rx] Patient Handouts: Rhabdomyolysis, Preventing Heat Exhaustion, Adult, Heat Illness-SportsMed Forms: ED Department Discharge Referrals: Noe Gonzalez NP [Primary Care Provider] - 10/16/20 11:00 am (You have a follow up appt. with Noe Gonzalez on October 16, 2020 at 11am---[facility]. Please wear a mask to your appt.) - Discharge Summary/Plan Comment DC Time >30 min.: Yes Discharge Summary/Plan Comment: Home to rest. Off all work/class/other activities today. Follow-up in clinic with Noe Gonzalez as directed. No strenuous/significant physical activity until you are seen and have had repeat labs. Continue to drink plenty of fluids. Return to ER if you have worsening discomfort, chest pain, shortness of breath, or call if you have any other worrisome signs/symptoms. Follow-Ups: JAYDEN PRATT has been referred to the following clinics/specialists for follow-up care: 1. Noe Gonzalez NP Date: 10/16/20 11:[address] [place] [address] Additional Information: You have a follow up appt. with Noe Gonzalez on October 16, 2020 at 11am--- [facility] . Please wear a mask to your appt. - General Info Functional Status: Reports: Pain Controlled, Tolerating Diet, Ambulating, Urinating - Review of Systems General: Reports: No Symptoms HEENT: Reports: No Symptoms Pulmonary: Reports: No Symptoms Cardiovascular: Reports: No Symptoms Gastrointestinal: Reports: No Symptoms Genitourinary: Reports: No Symptoms Musculoskeletal: Reports: No Symptoms Skin: Reports: No Symptoms Neurological: Reports: No Symptoms Psychiatric: Reports: No Symptoms - Patient Data Vitals - Most Recent: Last Vital Signs Temp 36.4 C 10/09/20 06:00 Pulse 66 10/09/20 06:00 Resp 16 10/09/20 06:00 BP 135/51 L 10/09/20 06:00 Pulse Ox 98 10/09/20 06:00 Weight - Most Recent: 130.725 kg Med Orders - Current: Current Medications Discontinued Medications Acetaminophen (Acetaminophen 325 Mg Tab) 650 mg PO Q4H PRN PRN Reason: Pain Acetaminophen/Codeine Phosphate (Take Home: Acetaminophen/Codeine 300 Mg/30 Mg, 5 Tab Pack) 1 packet PO ONETIME ONE Stop: 10/08/20 22:31 Sodium Chloride (Normal Saline) 1,000 mls @ 1,000 mls/hr IV ASDIRECTED PETER Last Admin: 10/08/20 18:40 Dose: 1,000 mls/hr Documented by: Sodium Chloride (Normal Saline) 1,000 mls @ 250 mls/hr IV ASDIRECTED PETER Last Admin: 10/09/20 04:01 Dose: 250 mls/hr Documented by: Sodium Chloride (Normal Saline) 1,000 mls @ 500 mls/hr IV ASDIRECTED PETER Last Admin: 10/08/20 22:00 Dose: 500 mls/hr Documented by: Sodium Chloride (Normal Saline) 1,000 mls @ 999 mls/hr IV ONETIME ONE Stop: 10/09/20 09:06 Last Admin: 10/09/20 07:50 Dose: 999 mls/hr Documented by: Morphine Sulfate (Morphine 4 Mg/Ml Syringe) 4 mg IVPUSH ONETIME ONE Stop: 10/08/20 18:40 Last Admin: 10/08/20 18:46 Dose: 4 mg Documented by: Morphine Sulfate (Morphine 4 Mg/Ml Syringe) 4 mg IVPUSH Q4H PRN PRN Reason: Pain Ondansetron HCl (Ondansetron 4 Mg/2 Ml Sdv) 4 mg IVPUSH Q8H PRN PRN Reason: Nausea Sodium Chloride (Sodium Chloride 0.9% 10 Ml Syringe) 10 ml FLUSH ASDIRECTED PRN PRN Reason: Keep Vein Open - Exam Quality Assessment: Reports: Supplemental Oxygen General: Reports: Alert, Oriented HEENT: Reports: Pupils Equal, Pupils Reactive, EOMI Neck: Reports: Supple Lungs: Reports: Clear to Auscultation, Normal Respiratory Effort Cardiovascular: Reports: Regular Rate, Regular Rhythm GI/Abdominal Exam: Normal Bowel Sounds, Soft, Non-Tender, No Distention, No Mass (Male) Exam: Deferred Extremities: Normal Inspection, Normal Range of Motion, Non-Tender Skin: Reports: Warm, Dry, Intact Wound/Incisions: Reports: Healing Well Neurological: Reports: No New Focal Deficit Psy/Mental Status: Reports: Alert, Normal Affect, Normal Mood
== END 2020-10-09 08:52 | disposition home or self-care (01) ==
LOC: VM.ED 18:29 → VM.MS 19:39
PROVIDERS: ADMIT Physician Assistant; ATTEND Physician Assistant
DX: T67.5XXA Heat exhaustion, unspecified, initial encounter (principal); N17.9 Acute kidney failure, unspecified; M62.82 Rhabdomyolysis; R25.2 Cramp and spasm; Z79.899 Other long term (current) drug therapy; Z20.822 Contact with and (suspected) exposure to COVID-19
CPT/HCPCS: 36415; 80048; 80053; 81001; 82550; 83605; 83735; 84100; 85025; 85610; 85730; 86140; 96374; 99217; 99220; 99284-25; J2270; J7030; U0002

== ENCOUNTER 2020-10-30 10:55 | Inpatient (IN) | payer MEDICAID ==
[2020-10-30] MEDS ORDERED: Sodium Chloride 0.9% 10 ML Syringe FLUSH PRN (11:16)
[2020-10-30] MEDS ORDERED: LORazepam 2 MG/ML SDV IVPUSH ONE (11:18)
[2020-10-30] MEDS ORDERED: Morphine 4 MG/ML Syringe IVPUSH ONE (11:18)
[2020-10-30] MEDS ORDERED: Sodium Chloride 0.9% 1,000 ML IV SCH (11:30)
[2020-10-30 11:50] LABS: CHLORIDE,CL 98 mmol/L (98-107); SODIUM,NA 136 mmol/L (136-145)
[2020-10-30 11:51] LABS: PTT,PARTIAL THROMBOPLSTIN TIME 23.6 SEC (25.6-32.8)
[2020-10-30] MEDS ORDERED: Lactated Ringers 1,000 ML IV ONE (11:51)
[2020-10-30 11:54] LABS: ANION GAP 17.3 mmol/L (5-15)
--- NOTE | 2020-10-30 12:02 | EDM.PDOC ---
ED HPI GENERAL MEDICAL PROBLEM - General Chief Complaint: General Stated Complaint: CRAMPS Time Seen by Provider: 10/30/20 11:00 Source of Information: Reports: Patient History Limitations: Reports: No Limitations - History of Present Illness INITIAL COMMENTS - FREE TEXT/NARRATIVE: Pt. presents to ER with complaints of diffuse body cramps and concerns of rhabdomyolysis following football practice. Ambient temperature today approx. 85 degrees. Pt. was seen in ER and admitted to this facility on 10/08 with exercise induced rhabdomyolysis, lactic acidosis, and heat related injury. Pt. has experienced this several times in the past requiring ER visits, and also was given IV fluids during practice and allowed to continue practicing. Pt. states that he thought he was drinking enough fluids. Pt. complains of diffuse muscle spasm/pain to extremities, chest, abdomen, back and extremity pain. Onset: Today Onset Date: 10/30/20 Location: Reports: Generalized Severity: Moderate Generalized Pain Score (Numeric/FACES): 10 - Related Data Allergies Allergy/AdvReac Type Severity Reaction Status Date / Time No Known Allergies Allergy Verified 10/30/20 12:14 Home Meds: Home Meds . [No Known Home Meds] 10/30/20 [History] Past Medical History - Past Health History Medical/Surgical History: Denies Medical/Surgical History - Past Surgical History Musculoskeletal Surgical History: Reports: Other (See Below) Other Musculoskeletal Surgeries/Procedures:: surgical repair of left clavicle. Social & Family History - Caffeine Use Caffeine Use: Reports: None ED ROS GENERAL - Review of Systems Review Of Systems: See Below Constitutional: Reports: No Symptoms HEENT: Reports: No Symptoms Respiratory: Reports: No Symptoms Cardiovascular: Reports: No Symptoms Endocrine: Reports: No Symptoms GI/Abdominal: Reports: Abdominal Pain : Reports: No Symptoms Musculoskeletal: Reports: Muscle Pain Skin: Reports: No Symptoms Neurological: Reports: No Symptoms Psychiatric: Reports: No Symptoms Hematologic/Lymphatic: Reports: No Symptoms Immunologic: Reports: No Symptoms Free Text/Narrative/Comment: Intially complaining of diffuse pain in all muscle groups, resolved after receiving morphine, ativan, and IV fluids ED EXAM, GENERAL - Physical Exam Exam: See Below Exam Limited By: No Limitations General Appearance: Alert, WD/WN, No Apparent Distress Throat/Mouth: Normal Inspection, Normal Oropharynx, Normal Voice, No Airway Compromise Head: Atraumatic, Normocephalic Neck: Normal Inspection, Supple, Non-Tender, Full Range of Motion Respiratory/Chest: No Respiratory Distress, Lungs Clear, Normal Breath Sounds, No Accessory Muscle Use Cardiovascular: Normal Peripheral Pulses, Regular Rate, Rhythm, No Edema, No JVD, No Murmur, No Rub GI/Abdominal: Soft, No Distention, No Mass, Tender (Male) Exam: Deferred Rectal (Males) Exam: Deferred Extremities: Normal Inspection, Normal Range of Motion, Non-Tender, No Pedal Edema, Normal Capillary Refill, Arm Pain, Leg Pain Neurological: Alert, Oriented, CN II-XII Intact, Normal Cognition, Normal Reflexes, No Motor/Sensory Deficits Psychiatric: Normal Affect, Normal Mood Skin Exam: Warm, Intact, Normal Color, Diaphoretic #1 Interpretation Rhythm: NSR [place]: Normal P-Wave: Present QRS: Normal ST-T: Normal QT: Normal EKG Interpretation Comments: T wave inversion inferior leads, borderline ST elevation in lateral leads. Course - Vital Signs Last Recorded V/S: Last Vital Signs Temp 36.6 C 10/30/20 12:15 Pulse 79 10/30/20 12:15 Resp 14 10/30/20 12:15 BP 148/88 H 10/30/20 12:15 Pulse Ox 98 10/30/20 12:15 - Orders/Labs/Meds Orders: Active Orders 24 hr Category Date Time Status Patient Status [ADT] Routine ADT 10/30/20 12:41 Ordered CORONAVIRUS COVID-19 RAPID [MOLEC] Stat Lab 10/30/20 12:42 Ordered PRO B-TYPE NATRIUR PEPT,BNPPRO [CHEM] Stat Lab 10/30/20 12:35 Ordered REFLEX LACTIC ACID YES OR NO [CHEM] Routine Lab 10/30/20 11:53 Received Lactated Ringers [Ringers, Lactated] 1,000 ml Med 10/30/20 11:51 Active IV ONETIME Sodium Chloride 0.9% [Normal Saline] 1,000 ml Med 10/30/20 11:30 Active IV ASDIRECTED Sodium Chloride 0.9% [Saline Flush] Med 10/30/20 11:16 Active 10 ml FLUSH ASDIRECTED PRN Peripheral IV Insertion Adult [OM.PC] Routine Oth 10/30/20 11:17 Ordered Medication Orders Sodium Chloride (Normal Saline) 1,000 mls @ 1,000 mls/hr IV ASDIRECTED PETER Last Admin: 10/30/20 11:22 Dose: 1,000 mls/hr Documented by: TREVON Lactated Ringer's (Ringers, Lactated) 1,000 mls @ 1,000 mls/hr IV ONETIME ONE Stop: 10/30/20 12:50 Last Admin: 10/30/20 12:07 Dose: 1,000 mls/hr Documented by: TREVON Sodium Chloride (Sodium Chloride 0.9% 10 Ml Syringe) 10 ml FLUSH ASDIRECTED PRN PRN Reason: Keep Vein Open Labs: Laboratory Tests 10/30/20 10/30/20 10/30/20 Range/Units 11:14 11:14 11:14 WBC 7.5 (4.0-10.0) x10^3/uL RBC 5.14 (4.5-6.0) x10^6/uL Hgb 15.9 (14.0-18.0) g/dL Hct 44.9 (40.0-52.0) % MCV 87.4 (78.0-93.0) fL MCH 30.9 (26.0-32.0) pg MCHC 35.4 (32.0-36.0) g/dL RDW Coeff of Kesha 12.6 (10.0-15.0) % Plt Count 249 (130-400) x10^3/uL Neut % (Auto) 53.8 (50.0-80.0) % Lymph % (Auto) 33.2 (25.0-50.0) % [place] % (Auto) 8.8 (2.0-11.0) % Eos % (Auto) 3.7 (0.0-4.0) % Baso % (Auto) 0.5 (0.2-1.2) % PT 10.3 (9.9-12.5) SEC INR 0.9 L (2.0-3.5) APTT 23.6 L (25.6-32.8) SEC Sodium 136 (136-145) mmol/L Potassium 4.3 (3.5-5.1) mmol/L Chloride 98 (98-107) mmol/L Carbon Dioxide 25 (21-32) mmol/L Anion Gap 17.3 H (5-15) mmol/L BUN 13 (7-18) mg/dL Creatinine 1.6 H (0.70-1.30) mg/dL Est Cr Clr Drug Dosing TNP Estimated GFR (MDRD) 54 Glucose 128 H (70-99) mg/dL Lactic Acid (0.4-2.0) mmol/L Calcium 9.7 D (8.5-10.1) mg/dL Corrected Calcium 9.3 (8.5-10.1) mg/dL Phosphorus 3.2 (2.6-4.7) mg/dL Magnesium 1.8 (1.8-2.4) mg/dL Total Bilirubin 0.6 (0.2-1.0) mg/dL AST 35 (15-37) U/L ALT 60 (16-63) U/L Alkaline Phosphatase 64 (46-116) U/L Creatine Kinase 982 H* (39-308) U/L Troponin I High Sens 333 H* (<=76) ng/L C-Reactive Protein < 0.2 (<=0.9) mg/dL Total Protein 8.2 (6.4-8.2) g/dL Albumin 4.5 (3.4-5.0) g/dL Globulin 3.7 Albumin/Globulin Ratio 1.22 TSH, Ultra Sensitive 1.222 (0.358-3.74) uIU/mL Urine Color (YELLOW) Urine Appearance (CLEAR) Urine pH (5.0-8.0) Ur Specific [place] Urine Protein (NEGATIVE) mg/dL Urine Glucose (UA) (NEGATIVE) mg/dL Urine Ketones (NEGATIVE) mg/dL Urine Occult Blood (NEGATIVE) Urine Nitrite (NEGATIVE) Urine Bilirubin (NEGATIVE) Urine Urobilinogen (0.2) EU/dL Ur Leukocyte Esterase (NEGATIVE) Urine Opiates Screen (NEGATIVE) Ur Buprenorphine Scrn (NEGATIVE) Ur Oxycodone Screen (NEGATIVE) Urine Methadone Screen (NEGATIVE) Ur Barbiturates Screen (NEGATIVE) Ur Phencyclidine Scrn (NEGATIVE) Ur Amphetamine Screen (NEGATIVE) U Methamphetamines Scrn (NEGATIVE) Urine MDMA Screen (NEGATIVE) U Benzodiazepines Scrn (NEGATIVE) U Cocaine Metab Screen (NEGATIVE) U Marijuana (THC) Screen (NEGATIVE) 10/30/20 10/30/20 10/30/20 Range/Units 11:14 12:02 12:02 WBC (4.0-10.0) x10^3/uL RBC (4.5-6.0) x10^6/uL Hgb (14.0-18.0) g/dL Hct (40.0-52.0) % MCV (78.0-93.0) fL MCH (26.0-32.0) pg MCHC (32.0-36.0) g/dL RDW Coeff of Kesha (10.0-15.0) % Plt Count (130-400) x10^3/uL Neut % (Auto) (50.0-80.0) % Lymph % (Auto) (25.0-50.0) % [place] % (Auto) (2.0-11.0) % Eos % (Auto) (0.0-4.0) % Baso % (Auto) (0.2-1.2) % PT (9.9-12.5) SEC INR (2.0-3.5) APTT (25.6-32.8) SEC Sodium (136-145) mmol/L Potassium (3.5-5.1) mmol/L Chloride (98-107) mmol/L Carbon Dioxide (21-32) mmol/L Anion Gap (5-15) mmol/L BUN (7-18) mg/dL Creatinine (0.70-1.30) mg/dL Est Cr Clr Drug Dosing Estimated GFR (MDRD) Glucose (70-99) mg/dL Lactic Acid 3.7 H* (0.4-2.0) mmol/L Calcium (8.5-10.1) mg/dL Corrected Calcium (8.5-10.1) mg/dL Phosphorus (2.6-4.7) mg/dL Magnesium (1.8-2.4) mg/dL Total Bilirubin (0.2-1.0) mg/dL AST (15-37) U/L ALT (16-63) U/L Alkaline Phosphatase (46-116) U/L Creatine Kinase (39-308) U/L Troponin I High Sens (<=76) ng/L C-Reactive Protein (<=0.9) mg/dL Total Protein (6.4-8.2) g/dL Albumin (3.4-5.0) g/dL Globulin Albumin/Globulin Ratio TSH, Ultra Sensitive (0.358-3.74) uIU/mL Urine Color Yellow (YELLOW) Urine Appearance Clear (CLEAR) Urine pH 7.0 (5.0-8.0) Ur Specific [place] 1.015 Urine Protein Negative (NEGATIVE) mg/dL Urine Glucose (UA) Negative (NEGATIVE) mg/dL Urine Ketones Negative (NEGATIVE) mg/dL Urine Occult Blood Negative (NEGATIVE) Urine Nitrite Negative (NEGATIVE) Urine Bilirubin Negative (NEGATIVE) Urine Urobilinogen 0.2 (0.2) EU/dL Ur Leukocyte Esterase Negative (NEGATIVE) Urine Opiates Screen Positive H (NEGATIVE) Ur Buprenorphine Scrn Negative (NEGATIVE) Ur Oxycodone Screen Negative (NEGATIVE) Urine Methadone Screen Negative (NEGATIVE) Ur Barbiturates Screen Negative (NEGATIVE) Ur Phencyclidine Scrn Negative (NEGATIVE) Ur Amphetamine Screen Negative (NEGATIVE) U Methamphetamines Scrn Negative (NEGATIVE) Urine MDMA Screen Negative (NEGATIVE) U Benzodiazepines Scrn Negative (NEGATIVE) U Cocaine Metab Screen Negative (NEGATIVE) U Marijuana (THC) Screen Positive H (NEGATIVE) Meds: Medications Generic Name Dose Route Start Last Admin Trade Name Freq PRN Reason Stop Dose Admin Sodium Chloride 1,000 mls @ 1,000 mls/hr 10/30/20 11:30 10/30/20 11:22 Normal Saline IV 1,000 mls/hr ASDIRECTED PETER Administration Lactated Ringer's 1,000 mls @ 1,000 mls/hr 10/30/20 11:51 10/30/20 12:07 Ringers, Lactated IV 10/30/20 12:50 1,000 mls/hr ONETIME ONE Administration Sodium Chloride 10 ml 10/30/20 11:16 Sodium Chloride 0.9% 10 Ml Syringe FLUSH ASDIRECTED PRN Keep Vein Open Discontinued Medications Generic Name Dose Route Start Last Admin Trade Name Freq PRN Reason Stop Dose Admin Lorazepam 1 mg 10/30/20 11:18 10/30/20 11:22 Lorazepam 2 Mg/Ml Sdv IVPUSH 10/30/20 11:19 1 mg STAT ONE Administration Morphine Sulfate 4 mg 10/30/20 11:18 10/30/20 11:22 Morphine 4 Mg/Ml Syringe IVPUSH 10/30/20 11:19 4 mg ONETIME ONE Administration - Re-Assessments/Exams Free Text/Narrative Re-Assessment/Exam: 10/30/20 12:48 Pt. in obvious distress on arrival to ER, complaining of diffuse cramping and pain. IV access established. He was fluid resuscitated with IV Normal saline, then transitioned to LR. He was given ativan 1 mg IV and morphine 4 mg IV or pain. He reported significant improvement in his discomfort. EKG was forwarded to [facility] and reviewed by Dr. Koehler. He suggested admission and trending of troponin with outpatient follow-up. Departure - Departure Time of Disposition: 12:51 Disposition: Admitted As Inpatient 68 Clinical Impression: JESSICA (acute kidney injury), Rhabdomyolysis, Elevated troponin, Lactic acidosis - Discharge Information Referrals: Noe Gonzalez, [employer] [Primary Care Provider] - Forms: ED Department Discharge Sepsis Event Note (ED) - Focused Exam Vital Signs: Vital Signs Temp Pulse Resp BP Pulse Ox 10/30/20 12:15 36.6 C 79 14 148/88 H 98 - Problem List Review Problem List Initiated/Reviewed/Updated: Yes - My Orders Last 24 Hours: My Active Orders 10/30/20 11:16 Sodium Chloride 0.9% [Saline Flush] 10 ml FLUSH ASDIRECTED PRN 10/30/20 11:17 Peripheral IV Insertion Adult [OM.PC] Routine 10/30/20 11:30 Sodium Chloride 0.9% [Normal Saline] 1,000 ml IV ASDIRECTED 10/30/20 11:51 Lactated Ringers [Ringers, Lactated] 1,000 ml IV ONETIME 10/30/20 11:53 REFLEX LACTIC ACID YES OR NO [CHEM] Routine 10/30/20 12:35 PRO B-TYPE NATRIUR PEPT,BNPPRO [CHEM] Stat 10/30/20 12:41 Patient Status [ADT] Routine 10/30/20 12:42 CORONAVIRUS COVID-19 RAPID [MOLEC] Stat - Assessment/Plan Last 24 Hours: My Active Orders 10/30/20 11:16 Sodium Chloride 0.9% [Saline Flush] 10 ml FLUSH ASDIRECTED PRN 10/30/20 11:17 Peripheral IV Insertion Adult [OM.PC] Routine 10/30/20 11:30 Sodium Chloride 0.9% [Normal Saline] 1,000 ml IV ASDIRECTED 10/30/20 11:51 Lactated Ringers [Ringers, Lactated] 1,000 ml IV ONETIME 10/30/20 11:53 REFLEX LACTIC ACID YES OR NO [CHEM] Routine 10/30/20 12:35 PRO B-TYPE NATRIUR PEPT,BNPPRO [CHEM] Stat 10/30/20 12:41 Patient Status [ADT] Routine 10/30/20 12:42 CORONAVIRUS COVID-19 RAPID [MOLEC] Stat Plan: Discussed findings with pt. he agrees to be admitted. Discussed findings of his labs, and voiced my concerns about his continued ability to participate in football/ultra strenuous activity, given his history of recurrent rhabdomyolysis. Spoke with his PCP, Dr. Sanders who graciously agreed to admit the patient. This is optimal, as Dr. Sanders is a team doctor and will be following the patient post admission.
[2020-10-30 12:14] LABS: BARBITURATE SCREEN,URINE NEGATIVE (NEGATIVE); BENZODIAZEPINES SCREEN,URINE NEGATIVE (NEGATIVE); BUPRENORPHINE SCREEN,URINE NEGATIVE (NEGATIVE); METHAMPHETAMINE SCREEN, URINE NEGATIVE (NEGATIVE); THC SCREEN,URINE 50 NG/ML POSITIVE (NEGATIVE)
[2020-10-30] MEDS: Sodium Chloride 0.9% 1,000 ML IV SCH ×2 (15:09→20:55)
--- NOTE | 2020-10-30 15:34 | PCM.HP.2 ---
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 He has no significant past medical history other than repeat episodes of rhabdomyolysis. 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 He presented to the emergency room earlier today after he started to have some cramping of his bilateral lower extremities after the first half of morning f ootball practice. ER evaluation was notable for a CK of 982, high-sensitivity troponin of 333, lactic acid of 3.7. His EKG did demonstrate some inferior lead ST depression. His cardiac evaluation was discussed with the parimutuel ticket checker on-call who thought that these findings were nonspecific and recommended for trending of the troponin. He was given 2 L of fluid in the emergency room with improvement of his leg cramps. Decision was made in the setting of his rhabdomyolysis, elevated lactic acid, NSTEMI to admit him for acute cares for ongoing monitoring and fluid management. At this time Luis notes that his legs are feeling a bit better. He denies any ongoing chest pain, back pain, and urinary troubles. We had had a lengthy discussion yesterday in the training room about hydration. We had also discussed potential for discontinuation of football if he had ongoing troubles with rhabdomyolysis. We did briefly talk about this today and he will give it strong consideration over the next 24 hours. He has no concerns at this time and is willing to be admitted for ongoing fluids as well as monitoring of his laboratory function. He states that he did well at maintaining his fluids this morning prior to practice as we had discussed in the training room yesterday. He is not in any long-term medications. No supplement use. Does use a little bit of marijuana. Denies any other substance use. He has had a significant outpatient work-up for causes of his ongoing/chronic rhabdomyolysis. Thyroid testing has been normal. Inflammatory myopathies have been investigated with inflammatory markers that were normal. Anti-CCP, alk phos, liver enzymes, electrolytes have all been normal in the past. He has not been tested for any infectious causes nor have I seen that his phosphate level has been checked. It would be odd for infectious causes to lead to such a longstanding problem with rhabdomyolysis but consideration could be given to testing for TB, ehrlichiosis, HIV, herpes. Duration of Symptoms: Reports: Week(s): Generalized Pain Score (Numeric/FACES): 0 - Related Data Allergies/Adverse Reactions: Allergies Allergy/AdvReac Type Severity Reaction Status Date / Time No Known Allergies Allergy Verified 10/30/20 12:14 Home Medications: Home Meds . [No Known Home Meds] 10/30/20 [History] Past Medical History - Past Health History Medical/Surgical History: Denies Medical/Surgical History Musculoskeletal History: Reports: Other (See Below) (rhabdomyolysis) - Infectious Disease History Infectious Disease History: Reports: None - Past Surgical History Musculoskeletal Surgical History: Reports: Other (See Below) Other Musculoskeletal Surgeries/Procedures:: surgical repair of left clavicle. Social & Family History - Family History Family Medical History: No Pertinent Family History - Caffeine Use Caffeine Use: Reports: None - Recreational Drug Use Recreational Drug Use: Yes Drug Use in Last 12 Months: Yes Recreational Drug Type: Reports: Marijuana/Hashish H&P Review of Systems - Review of Systems: Review Of Systems: See Below General: Reports: Fatigue HEENT: Reports: No Symptoms Pulmonary: Reports: No Symptoms Cardiovascular: Reports: No Symptoms Gastrointestinal: Reports: No Symptoms Genitourinary: Reports: No Symptoms Musculoskeletal: Reports: Muscle Pain (improving), Muscle Stiffness (improving) Skin: Reports: No Symptoms Psychiatric: Reports: No Symptoms Neurological: Reports: No Symptoms Exam - Exam Exam: See Below - Vital Signs Vital Signs: Last Vital Signs Temp 98 F 10/30/20 13:36 Pulse 68 10/30/20 13:36 Resp 14 10/30/20 12:15 BP 143/63 H 10/30/20 13:36 Pulse Ox 97 10/30/20 13:36 Weight: 293 lb 8 oz - Exam General: Alert, Oriented, Cooperative HEENT: Conjunctiva Clear, EOMI, Mucosa Moist & [place] Neck: Supple, Trachea Midline Lungs: Clear to Auscultation, Normal Respiratory Effort Cardiovascular: Regular Rate, Regular Rhythm GI/Abdominal Exam: Normal Bowel Sounds, Soft, Non-Tender Back Exam: Normal Inspection Extremities: Normal Inspection, Non-Tender, No Pedal Edema Skin: Warm, Dry Neurological: Cranial Nerves Intact Neuro Extensive - Mental Status: Alert, Oriented x3, Normal Mood/Affect Neuro Extensive - Motor, Sensory, Reflexes: Normal Gait Psychiatric: Alert, Normal Affect, Normal Mood - Patient Data Lab Results Last 24 hrs: Laboratory Results - last 24 hr 10/30/20 10/30/20 10/30/20 Range/Units 11:14 11:14 11:14 WBC 7.5 (4.0-10.0) x10^3/uL RBC 5.14 (4.5-6.0) x10^6/uL Hgb 15.9 (14.0-18.0) g/dL Hct 44.9 (40.0-52.0) % MCV 87.4 (78.0-93.0) fL MCH 30.9 (26.0-32.0) pg MCHC 35.4 (32.0-36.0) g/dL RDW Coeff of Kesha 12.6 (10.0-15.0) % Plt Count 249 (130-400) x10^3/uL Neut % (Auto) 53.8 (50.0-80.0) % Lymph % (Auto) 33.2 (25.0-50.0) % [place] % (Auto) 8.8 (2.0-11.0) % Eos % (Auto) 3.7 (0.0-4.0) % Baso % (Auto) 0.5 (0.2-1.2) % PT 10.3 (9.9-12.5) SEC INR 0.9 L (2.0-3.5) APTT 23.6 L (25.6-32.8) SEC Sodium 136 (136-145) mmol/L Potassium 4.3 (3.5-5.1) mmol/L Chloride 98 (98-107) mmol/L Carbon Dioxide 25 (21-32) mmol/L Anion Gap 17.3 H (5-15) mmol/L BUN 13 (7-18) mg/dL Creatinine 1.6 H (0.70-1.30) mg/dL Est Cr Clr Drug Dosing TNP Estimated GFR (MDRD) 54 Glucose 128 H (70-99) mg/dL Lactic Acid (0.4-2.0) mmol/L Calcium 9.7 D (8.5-10.1) mg/dL Corrected Calcium 9.3 (8.5-10.1) mg/dL Phosphorus 3.2 (2.6-4.7) mg/dL Magnesium 1.8 (1.8-2.4) mg/dL Total Bilirubin 0.6 (0.2-1.0) mg/dL AST 35 (15-37) U/L ALT 60 (16-63) U/L Alkaline Phosphatase 64 (46-116) U/L Creatine Kinase 982 H* (39-308) U/L Troponin I High Sens 333 H* (<=76) ng/L C-Reactive Protein < 0.2 (<=0.9) mg/dL NT-Pro-B Natriuret Pep (<=125) pg/mL Total Protein 8.2 (6.4-8.2) g/dL Albumin 4.5 (3.4-5.0) g/dL Globulin 3.7 Albumin/Globulin Ratio 1.22 TSH, Ultra Sensitive 1.222 (0.358-3.74) uIU/mL Urine Color (YELLOW) Urine Appearance (CLEAR) Urine pH (5.0-8.0) Ur Specific Ledbetter Urine Protein (NEGATIVE) mg/dL Urine Glucose (UA) (NEGATIVE) mg/dL Urine Ketones (NEGATIVE) mg/dL Urine Occult Blood (NEGATIVE) Urine Nitrite (NEGATIVE) Urine Bilirubin (NEGATIVE) Urine Urobilinogen (0.2) EU/dL Ur Leukocyte Esterase (NEGATIVE) Urine Opiates Screen (NEGATIVE) Ur Buprenorphine Scrn (NEGATIVE) Ur Oxycodone Screen (NEGATIVE) Urine Methadone Screen (NEGATIVE) Ur Barbiturates Screen (NEGATIVE) Ur Phencyclidine Scrn (NEGATIVE) Ur Amphetamine Screen (NEGATIVE) U Methamphetamines Scrn (NEGATIVE) Urine MDMA Screen (NEGATIVE) U Benzodiazepines Scrn (NEGATIVE) U Cocaine Metab Screen (NEGATIVE) U Marijuana (THC) Screen (NEGATIVE) SARS CoV-2 RNA Rapid ANNA (NEGATIVE) 10/30/20 10/30/20 10/30/20 Range/Units 11:14 11:14 12:02 WBC (4.0-10.0) x10^3/uL RBC (4.5-6.0) x10^6/uL Hgb (14.0-18.0) g/dL Hct (40.0-52.0) % MCV (78.0-93.0) fL MCH (26.0-32.0) pg MCHC (32.0-36.0) g/dL RDW Coeff of Kesha (10.0-15.0) % Plt Count (130-400) x10^3/uL Neut % (Auto) (50.0-80.0) % Lymph % (Auto) (25.0-50.0) % [place] % (Auto) (2.0-11.0) % Eos % (Auto) (0.0-4.0) % Baso % (Auto) (0.2-1.2) % PT (9.9-12.5) SEC INR (2.0-3.5) APTT (25.6-32.8) SEC Sodium (136-145) mmol/L Potassium (3.5-5.1) mmol/L Chloride (98-107) mmol/L Carbon Dioxide (21-32) mmol/L Anion Gap (5-15) mmol/L BUN (7-18) mg/dL Creatinine (0.70-1.30) mg/dL Est Cr Clr Drug Dosing Estimated GFR (MDRD) Glucose (70-99) mg/dL Lactic Acid 3.7 H* (0.4-2.0) mmol/L Calcium (8.5-10.1) mg/dL Corrected Calcium (8.5-10.1) mg/dL Phosphorus (2.6-4.7) mg/dL Magnesium (1.8-2.4) mg/dL Total Bilirubin (0.2-1.0) mg/dL AST (15-37) U/L ALT (16-63) U/L Alkaline Phosphatase (46-116) U/L Creatine Kinase (39-308) U/L Troponin I High Sens (<=76) ng/L C-Reactive Protein (<=0.9) mg/dL NT-Pro-B Natriuret Pep 19 (<=125) pg/mL Total Protein (6.4-8.2) g/dL Albumin (3.4-5.0) g/dL Globulin Albumin/Globulin Ratio TSH, Ultra Sensitive (0.358-3.74) uIU/mL Urine Color (YELLOW) Urine Appearance (CLEAR) Urine pH (5.0-8.0) Ur Specific Ledbetter Urine Protein (NEGATIVE) mg/dL Urine Glucose (UA) (NEGATIVE) mg/dL Urine Ketones (NEGATIVE) mg/dL Urine Occult Blood (NEGATIVE) Urine Nitrite (NEGATIVE) Urine Bilirubin (NEGATIVE) Urine Urobilinogen (0.2) EU/dL Ur Leukocyte Esterase (NEGATIVE) Urine Opiates Screen Positive H (NEGATIVE) Ur Buprenorphine Scrn Negative (NEGATIVE) Ur Oxycodone Screen Negative (NEGATIVE) Urine Methadone Screen Negative (NEGATIVE) Ur Barbiturates Screen Negative (NEGATIVE) Ur Phencyclidine Scrn Negative (NEGATIVE) Ur Amphetamine Screen Negative (NEGATIVE) U Methamphetamines Scrn Negative (NEGATIVE) Urine MDMA Screen Negative (NEGATIVE) U Benzodiazepines Scrn Negative (NEGATIVE) U Cocaine Metab Screen Negative (NEGATIVE) U Marijuana (THC) Screen Positive H (NEGATIVE) SARS CoV-2 RNA Rapid ANNA (NEGATIVE) 10/30/20 10/30/20 Range/Units 12:02 12:44 WBC (4.0-10.0) x10^3/uL RBC (4.5-6.0) x10^6/uL Hgb (14.0-18.0) g/dL Hct (40.0-52.0) % MCV (78.0-93.0) fL MCH (26.0-32.0) pg MCHC (32.0-36.0) g/dL RDW Coeff of Kesha (10.0-15.0) % Plt Count (130-400) x10^3/uL Neut % (Auto) (50.0-80.0) % Lymph % (Auto) (25.0-50.0) % [place] % (Auto) (2.0-11.0) % Eos % (Auto) (0.0-4.0) % Baso % (Auto) (0.2-1.2) % PT (9.9-12.5) SEC INR (2.0-3.5) APTT (25.6-32.8) SEC Sodium (136-145) mmol/L Potassium (3.5-5.1) mmol/L Chloride (98-107) mmol/L Carbon Dioxide (21-32) mmol/L Anion Gap (5-15) mmol/L BUN (7-18) mg/dL Creatinine (0.70-1.30) mg/dL Est Cr Clr Drug Dosing Estimated GFR (MDRD) Glucose (70-99) mg/dL Lactic Acid (0.4-2.0) mmol/L Calcium (8.5-10.1) mg/dL Corrected Calcium (8.5-10.1) mg/dL Phosphorus (2.6-4.7) mg/dL Magnesium (1.8-2.4) mg/dL Total Bilirubin (0.2-1.0) mg/dL AST (15-37) U/L ALT (16-63) U/L Alkaline Phosphatase (46-116) U/L Creatine Kinase (39-308) U/L Troponin I High Sens (<=76) ng/L C-Reactive Protein (<=0.9) mg/dL NT-Pro-B Natriuret Pep (<=125) pg/mL Total Protein (6.4-8.2) g/dL Albumin (3.4-5.0) g/dL Globulin Albumin/Globulin Ratio TSH, Ultra Sensitive (0.358-3.74) uIU/mL Urine Color Yellow (YELLOW) Urine Appearance Clear (CLEAR) Urine pH 7.0 (5.0-8.0) Ur Specific Ledbetter 1.015 Urine Protein Negative (NEGATIVE) mg/dL Urine Glucose (UA) Negative (NEGATIVE) mg/dL Urine Ketones Negative (NEGATIVE) mg/dL Urine Occult Blood Negative (NEGATIVE) Urine Nitrite Negative (NEGATIVE) Urine Bilirubin Negative (NEGATIVE) Urine Urobilinogen 0.2 (0.2) EU/dL Ur Leukocyte Esterase Negative (NEGATIVE) Urine Opiates Screen (NEGATIVE) Ur Buprenorphine Scrn (NEGATIVE) Ur Oxycodone Screen (NEGATIVE) Urine Methadone Screen (NEGATIVE) Ur Barbiturates Screen (NEGATIVE) Ur Phencyclidine Scrn (NEGATIVE) Ur Amphetamine Screen (NEGATIVE) U Methamphetamines Scrn (NEGATIVE) Urine MDMA Screen (NEGATIVE) U Benzodiazepines Scrn (NEGATIVE) U Cocaine Metab Screen (NEGATIVE) U Marijuana (THC) Screen (NEGATIVE) SARS CoV-2 RNA Rapid ANNA Negative (NEGATIVE) Result Diagrams: 10/30/20 11:14 10/30/20 11:14 Sepsis Event Note - Evaluation Sepsis Screening Result: No Definite Risk - Focused Exam Vital Signs: Vital Signs Temp Pulse Resp BP Pulse Ox 10/30/20 13:36 98 F 68 143/63 H 97 10/30/20 12:15 98 F 79 14 148/88 H 98 - Problem List (1) NSTEMI (non-ST elevated myocardial infarction) SNOMED Code(s): 14376885 ICD Code: I21.4 - NON-ST ELEVATION (NSTEMI) MYOCARDIAL INFARCTION Status: Acute Current Visit: Yes (2) Lactic acidosis SNOMED Code(s): 12491744 ICD Code: E87.2 - ACIDOSIS Status: Acute Current Visit: Yes (3) Rhabdomyolysis SNOMED Code(s): 514002668 ICD Code: M62.82 - RHABDOMYOLYSIS Status: Acute Current Visit: Yes (4) Acute kidney injury SNOMED Code(s): 93524029, 99555166 ICD Code: N17.9 - ACUTE KIDNEY FAILURE, UNSPECIFIED Status: Acute Current Visit: Yes Problem List Initiated/Reviewed/Updated: Yes Orders Last 24hrs: Active Orders 24 hr Category Date Time Status Patient Status [ADT] Routine ADT 10/30/20 12:41 Active Cardiac Monitoring [RC] CONTINUOUS Care 10/30/20 13:36 Active Intake and Output [RC] QSHIFT Care 10/30/20 13:36 Active Oxygen Therapy [RC] PRN Care 10/30/20 13:36 Active VTE/DVT Education [RC] PER UNIT ROUTINE Care 10/30/20 13:36 Active Vital Signs [RC] Q4H Care 10/30/20 13:36 Active Regular Diet [DIET] Diet 10/30/20 Dinner Active COMPREHENSIVE METABOLIC PN,CMP [CHEM] AM Lab 10/31/20 05:11 Ordered CREATINE KINASE,CK [CHEM] AM Lab 10/31/20 05:11 Ordered LACTATE SEPSIS W/ REFLEX [CHEM] Routine Lab 10/30/20 15:15 Received PROCALCITONIN [CHEM] Routine Lab 10/30/20 11:14 Received TROPONIN I HIGH SENSITIVITY [CHEM] Timed Lab 10/30/20 15:15 Received Sodium Chloride 0.9% [Normal Saline] 1,000 ml Med 10/30/20 14:30 Active IV ASDIRECTED Sodium Chloride 0.9% [Saline Flush] Med 10/30/20 11:16 Active 10 ml FLUSH ASDIRECTED PRN Peripheral IV Insertion Adult [OM.PC] Routine Oth 10/30/20 11:17 Ordered Resuscitation Status Routine Resus Stat 10/30/20 13:36 Ordered Medication Orders Sodium Chloride (Normal Saline) 1,000 mls @ 175 mls/hr IV ASDIRECTED [facility] Last Admin: 10/30/20 15:09 Dose: 175 mls/hr Documented by: JOSE Sodium Chloride (Sodium Chloride 0.9% 10 Ml Syringe) 10 ml FLUSH ASDIRECTED PRN PRN Reason: Keep Vein Open Assessment/Plan Comment:: Rhabdomyolysis JESSICA NSTEMI Lactic acidosis -Patient presented to the ER with a chief complaint of muscle cramps. Longstanding history of rhabdomyolysis. CK 92, high-sensitivity troponin III 33, lactic acid 3.7, creatinine 1.6. -He is status post 2 L of fluid in the ER with improvement of his symptoms Plan: -Continue IV fluids at 175mL per hour -We will plan to trend the lactic acid as well as the troponin at 315 -Telemetry -Intake and output every shift -Repeat CK and CMP in the morning -Given negative outpatient work-up thus far we will add on some infectious causes for his chronic rhabdo including TB, HIV, HSV. We will keep ehrlichiosis and other bacterial causes in the back of our mind as well. Chronic: - no chronic medical conditions Diet: Regular DVT: patient OK to ambulate around for DVT prevention Code: FULL Disposition: Anticipate 1-2 nights for IV fluid, monitoring of labs. Discussion had with patient about participation in high intensity sports moving forward. He will think about this over the next 24 hours we will come to a definitive decision by the time that he is discharged. - Mortality Measure Prognosis:: Good
[2020-10-31] MEDS: Sodium Chloride 0.9% 1,000 ML IV SCH ×2 (02:18→08:16)
[2020-10-31 07:06] LABS: CHLORIDE,CL 103 mmol/L (98-107); SODIUM,NA 138 mmol/L (136-145)
[2020-10-31 07:07] LABS: ANION GAP 13.3 mmol/L (5-15)
--- NOTE | 2020-10-31 09:05 | PCM.DCSUM1 ---
Discharge Summary - Hospital Course Free Text/Narrative:: Eladio is a 25-year-old male who was admittedon 10/30/20 for rhabdomyolysis, JESSICA, and NSTEMI after experiencing muscle cramps at practice. He has a history of repeat episodes of rhabdomyolysis. 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 ER evaluation was notable for a CK of 982, high-sensitivity troponin of 333, lactic acid of 3.7. His EKG did demonstrate some inferior lead ST depression. His cardiac evaluation was discussed with the candy separator hard on-call who thought that these findings were nonspecific and recommended for trending of the troponin. He was given 2 L of fluid in the emergency room with improvement of his leg cramps. Decision was made in the setting of his rhabdomyolysis, elevated lactic acid, NSTEMI to admit him for acute cares for ongoing monitoring and fluid management. He was maintained on normal saline at 175 mL/h overnight. Lactic acid was down by the recheck at 4 hours recheck as well as the troponin. Telemetry overnight was normal. CK improved down into the 600s this morning and creatinine was back down into a normal range. He is feeling well this morning and wants to be discharged home. He has had a significant outpatient work-up for causes of his ongoing/chronic rh abdomyolysis. Thyroid testing has been normal. Inflammatory myopathies have been investigated with inflammatory markers that were normal. Anti-CCP, alk phos, liver enzymes, electrolytes have all been normal in the past. We did draw for infectious causes such as HIV, HSV, TB and these are pending at the time of discharge. We will plan for him to do a limited return to play program with the athletic trainers. I want for him to come into the clinic next week Thursday for lab only visit for a redraw of his BMP and his CK. At that point we will make a decision on his ability to return to full play at least for the [employer] versus [employer] game this coming . We did have lengthy discussions about his return to full contact sports and my concern for his risk for long-term kidney disease. At this point he would like to continue to play; we will do so with the plan for more than adequate hydration as well as regular monitoring of his electrolytes, kidney function, CK levels. - Discharge Data Discharge Date: 10/31/20 Discharge Disposition: Home, Self-Care 01 Condition: Good - Referral to Home Health Primary Care Physician: Noe Gonzalez NP - Discharge Diagnosis/Problem(s) (1) Rhabdomyolysis SNOMED Code(s): 196460432 ICD Code: M62.82 - RHABDOMYOLYSIS Status: Acute Current Visit: Yes (2) NSTEMI (non-ST elevated myocardial infarction) SNOMED Code(s): 42358507 ICD Code: I21.4 - NON-ST ELEVATION (NSTEMI) MYOCARDIAL INFARCTION Status: Resolved Current Visit: Yes (3) Lactic acidosis SNOMED Code(s): 03881212 ICD Code: E87.2 - ACIDOSIS Status: Resolved Current Visit: Yes (4) Acute kidney injury SNOMED Code(s): 23574688, 64337345 ICD Code: N17.9 - ACUTE KIDNEY FAILURE, UNSPECIFIED Status: Resolved Current Visit: Yes - Patient Instructions Diet: Heart Healthy Diet Feeding Instructions: Pus fluids and electrolytes! Other/Special Instructions: Slow return to play directed by the AT's. Will plan for a repeat BMP and CK on 11/05/20. Will make decisions about ability to return to full level of activity after that. - Discharge Plan *PRESCRIPTION DRUG MONITORING PROGRAM REVIEWED*: Not Applicable *COPY OF PRESCRIPTION DRUG MONITORING REPORT IN PATIENT DC: Not Applicable Home Medications: Home Meds Acetaminophen/HYDROcodone [HYDROcodone-Acetaminophen 5-325 MG *] 1 tab PO Q6H PRN 10/30/20 [History] Forms: ED Department Discharge - Discharge Summary/Plan Comment DC Time >30 min.: No Total # of Minutes for Discharge Time: 20 - General Info Admission Dx/Problem (Free Text: Admission Diagnosis/Problem Admission Diagnosis/Problem Rhabdomyolysis Functional Status: Reports: Pain Controlled - Review of Systems General: Reports: No Symptoms HEENT: Reports: No Symptoms Pulmonary: Reports: No Symptoms Cardiovascular: Reports: No Symptoms Gastrointestinal: Reports: No Symptoms Genitourinary: Reports: No Symptoms, Frequency (due to massive amount of fluids) Musculoskeletal: Reports: No Symptoms Skin: Reports: No Symptoms Neurological: Reports: No Symptoms Psychiatric: Reports: No Symptoms - Patient Data Vitals - Most Recent: Last Vital Signs Temp 98.2 F 10/31/20 06:39 Pulse 62 10/31/20 06:39 Resp 16 10/31/20 06:39 BP 115/52 L 10/31/20 06:39 Pulse Ox 96 10/31/20 06:39 Weight - Most Recent: 293 lb 8 oz I&O - Last 24 hours: Intake & Output 10/30/20 10/31/20 10/31/20 22:59 06:59 14:59 Intake Total 639 2320 300 Output Total 950 Balance 639 1370 300 Lab Results - Last 24 hrs: Laboratory Results - last 24 hr 10/30/20 10/30/20 10/30/20 Range/Units 11:14 11:14 11:14 WBC 7.5 (4.0-10.0) x10^3/uL RBC 5.14 (4.5-6.0) x10^6/uL Hgb 15.9 (14.0-18.0) g/dL Hct 44.9 (40.0-52.0) % MCV 87.4 (78.0-93.0) fL MCH 30.9 (26.0-32.0) pg MCHC 35.4 (32.0-36.0) g/dL RDW Coeff of Kesha 12.6 (10.0-15.0) % Plt Count 249 (130-400) x10^3/uL Neut % (Auto) 53.8 (50.0-80.0) % Lymph % (Auto) 33.2 (25.0-50.0) % [place] % (Auto) 8.8 (2.0-11.0) % Eos % (Auto) 3.7 (0.0-4.0) % Baso % (Auto) 0.5 (0.2-1.2) % PT 10.3 (9.9-12.5) SEC INR 0.9 L (2.0-3.5) APTT 23.6 L (25.6-32.8) SEC Sodium 136 (136-145) mmol/L Potassium 4.3 (3.5-5.1) mmol/L Chloride 98 (98-107) mmol/L Carbon Dioxide 25 (21-32) mmol/L Anion Gap 17.3 H (5-15) mmol/L BUN 13 (7-18) mg/dL Creatinine 1.6 H (0.70-1.30) mg/dL Est Cr Clr Drug Dosing TNP Estimated GFR (MDRD) 54 Glucose 128 H (70-99) mg/dL Lactic Acid (0.4-2.0) mmol/L Calcium 9.7 D (8.5-10.1) mg/dL Corrected Calcium 9.3 (8.5-10.1) mg/dL Phosphorus 3.2 (2.6-4.7) mg/dL Magnesium 1.8 (1.8-2.4) mg/dL Total Bilirubin 0.6 (0.2-1.0) mg/dL AST 35 (15-37) U/L ALT 60 (16-63) U/L Alkaline Phosphatase 64 (46-116) U/L Creatine Kinase 982 H* (39-308) U/L Troponin I High Sens 333 H* (<=76) ng/L C-Reactive Protein < 0.2 (<=0.9) mg/dL NT-Pro-B Natriuret Pep (<=125) pg/mL Total Protein 8.2 (6.4-8.2) g/dL Albumin 4.5 (3.4-5.0) g/dL Globulin 3.7 Albumin/Globulin Ratio 1.22 Procalcitonin (0.1-0.50) ng/mL TSH, Ultra Sensitive 1.222 (0.358-3.74) uIU/mL Urine Color (YELLOW) Urine Appearance (CLEAR) Urine pH (5.0-8.0) Ur Specific [place] Urine Protein (NEGATIVE) mg/dL Urine Glucose (UA) (NEGATIVE) mg/dL Urine Ketones (NEGATIVE) mg/dL Urine Occult Blood (NEGATIVE) Urine Nitrite (NEGATIVE) Urine Bilirubin (NEGATIVE) Urine Urobilinogen (0.2) EU/dL Ur Leukocyte Esterase (NEGATIVE) Urine Opiates Screen (NEGATIVE) Ur Buprenorphine Scrn (NEGATIVE) Ur Oxycodone Screen (NEGATIVE) Urine Methadone Screen (NEGATIVE) Ur Barbiturates Screen (NEGATIVE) Ur Phencyclidine Scrn (NEGATIVE) Ur Amphetamine Screen (NEGATIVE) U Methamphetamines Scrn (NEGATIVE) Urine MDMA Screen (NEGATIVE) U Benzodiazepines Scrn (NEGATIVE) U Cocaine Metab Screen (NEGATIVE) U Marijuana (THC) Screen (NEGATIVE) SARS CoV-2 RNA Rapid ANNA (NEGATIVE) 10/30/20 10/30/20 10/30/20 Range/Units 11:14 11:14 11:14 WBC (4.0-10.0) x10^3/uL RBC (4.5-6.0) x10^6/uL Hgb (14.0-18.0) g/dL Hct (40.0-52.0) % MCV (78.0-93.0) fL MCH (26.0-32.0) pg MCHC (32.0-36.0) g/dL RDW Coeff of Kesha (10.0-15.0) % Plt Count (130-400) x10^3/uL Neut % (Auto) (50.0-80.0) % Lymph % (Auto) (25.0-50.0) % [place] % (Auto) (2.0-11.0) % Eos % (Auto) (0.0-4.0) % Baso % (Auto) (0.2-1.2) % PT (9.9-12.5) SEC INR (2.0-3.5) APTT (25.6-32.8) SEC Sodium (136-145) mmol/L Potassium (3.5-5.1) mmol/L Chloride (98-107) mmol/L Carbon Dioxide (21-32) mmol/L Anion Gap (5-15) mmol/L BUN (7-18) mg/dL Creatinine (0.70-1.30) mg/dL Est Cr Clr Drug Dosing Estimated GFR (MDRD) Glucose (70-99) mg/dL Lactic Acid 3.7 H* (0.4-2.0) mmol/L Calcium (8.5-10.1) mg/dL Corrected Calcium (8.5-10.1) mg/dL Phosphorus (2.6-4.7) mg/dL Magnesium (1.8-2.4) mg/dL Total Bilirubin (0.2-1.0) mg/dL AST (15-37) U/L ALT (16-63) U/L Alkaline Phosphatase (46-116) U/L Creatine Kinase (39-308) U/L Troponin I High Sens (<=76) ng/L C-Reactive Protein (<=0.9) mg/dL NT-Pro-B Natriuret Pep 19 (<=125) pg/mL Total Protein (6.4-8.2) g/dL Albumin (3.4-5.0) g/dL Globulin Albumin/Globulin Ratio Procalcitonin <0.05 L (0.1-0.50) ng/mL TSH, Ultra Sensitive (0.358-3.74) uIU/mL Urine Color (YELLOW) Urine Appearance (CLEAR) Urine pH (5.0-8.0) Ur Specific [place] Urine Protein (NEGATIVE) mg/dL Urine Glucose (UA) (NEGATIVE) mg/dL Urine Ketones (NEGATIVE) mg/dL Urine Occult Blood (NEGATIVE) Urine Nitrite (NEGATIVE) Urine Bilirubin (NEGATIVE) Urine Urobilinogen (0.2) EU/dL Ur Leukocyte Esterase (NEGATIVE) Urine Opiates Screen (NEGATIVE) Ur Buprenorphine Scrn (NEGATIVE) Ur Oxycodone Screen (NEGATIVE) Urine Methadone Screen (NEGATIVE) Ur Barbiturates Screen (NEGATIVE) Ur Phencyclidine Scrn (NEGATIVE) Ur Amphetamine Screen (NEGATIVE) U Methamphetamines Scrn (NEGATIVE) Urine MDMA Screen (NEGATIVE) U Benzodiazepines Scrn (NEGATIVE) U Cocaine Metab Screen (NEGATIVE) U Marijuana (THC) Screen (NEGATIVE) SARS CoV-2 RNA Rapid ANNA (NEGATIVE) 10/30/20 10/30/20 10/30/20 Range/Units 12:02 12:02 12:44 WBC (4.0-10.0) x10^3/uL RBC (4.5-6.0) x10^6/uL Hgb (14.0-18.0) g/dL Hct (40.0-52.0) % MCV (78.0-93.0) fL MCH (26.0-32.0) pg MCHC (32.0-36.0) g/dL RDW Coeff of Kesha (10.0-15.0) % Plt Count (130-400) x10^3/uL Neut % (Auto) (50.0-80.0) % Lymph % (Auto) (25.0-50.0) % [place] % (Auto) (2.0-11.0) % Eos % (Auto) (0.0-4.0) % Baso % (Auto) (0.2-1.2) % PT (9.9-12.5) SEC INR (2.0-3.5) APTT (25.6-32.8) SEC Sodium (136-145) mmol/L Potassium (3.5-5.1) mmol/L Chloride (98-107) mmol/L Carbon Dioxide (21-32) mmol/L Anion Gap (5-15) mmol/L BUN (7-18) mg/dL Creatinine (0.70-1.30) mg/dL Est Cr Clr Drug Dosing Estimated GFR (MDRD) Glucose (70-99) mg/dL Lactic Acid (0.4-2.0) mmol/L Calcium (8.5-10.1) mg/dL Corrected Calcium (8.5-10.1) mg/dL Phosphorus (2.6-4.7) mg/dL Magnesium (1.8-2.4) mg/dL Total Bilirubin (0.2-1.0) mg/dL AST (15-37) U/L ALT (16-63) U/L Alkaline Phosphatase (46-116) U/L Creatine Kinase (39-308) U/L Troponin I High Sens (<=76) ng/L C-Reactive Protein (<=0.9) mg/dL NT-Pro-B Natriuret Pep (<=125) pg/mL Total Protein (6.4-8.2) g/dL Albumin (3.4-5.0) g/dL Globulin Albumin/Globulin Ratio Procalcitonin (0.1-0.50) ng/mL TSH, Ultra Sensitive (0.358-3.74) uIU/mL Urine Color Yellow (YELLOW) Urine Appearance Clear (CLEAR) Urine pH 7.0 (5.0-8.0) Ur Specific [place] 1.015 Urine Protein Negative (NEGATIVE) mg/dL Urine Glucose (UA) Negative (NEGATIVE) mg/dL Urine Ketones Negative (NEGATIVE) mg/dL Urine Occult Blood Negative (NEGATIVE) Urine Nitrite Negative (NEGATIVE) Urine Bilirubin Negative (NEGATIVE) Urine Urobilinogen 0.2 (0.2) EU/dL Ur Leukocyte Esterase Negative (NEGATIVE) Urine Opiates Screen Positive H (NEGATIVE) Ur Buprenorphine Scrn Negative (NEGATIVE) Ur Oxycodone Screen Negative (NEGATIVE) Urine Methadone Screen Negative (NEGATIVE) Ur Barbiturates Screen Negative (NEGATIVE) Ur Phencyclidine Scrn Negative (NEGATIVE) Ur Amphetamine Screen Negative (NEGATIVE) U Methamphetamines Scrn Negative (NEGATIVE) Urine MDMA Screen Negative (NEGATIVE) U Benzodiazepines Scrn Negative (NEGATIVE) U Cocaine Metab Screen Negative (NEGATIVE) U Marijuana (THC) Screen Positive H (NEGATIVE) SARS CoV-2 RNA Rapid ANNA Negative (NEGATIVE) 10/30/20 10/30/20 10/31/20 Range/Units 15:15 15:15 06:31 WBC (4.0-10.0) x10^3/uL RBC (4.5-6.0) x10^6/uL Hgb (14.0-18.0) g/dL Hct (40.0-52.0) % MCV (78.0-93.0) fL MCH (26.0-32.0) pg MCHC (32.0-36.0) g/dL RDW Coeff of Kesha (10.0-15.0) % Plt Count (130-400) x10^3/uL Neut % (Auto) (50.0-80.0) % Lymph % (Auto) (25.0-50.0) % [place] % (Auto) (2.0-11.0) % Eos % (Auto) (0.0-4.0) % Baso % (Auto) (0.2-1.2) % PT (9.9-12.5) SEC INR (2.0-3.5) APTT (25.6-32.8) SEC Sodium 138 (136-145) mmol/L Potassium 4.3 (3.5-5.1) mmol/L Chloride 103 (98-107) mmol/L Carbon Dioxide 26 (21-32) mmol/L Anion Gap 13.3 (5-15) mmol/L BUN 10 (7-18) mg/dL Creatinine 1.1 (0.70-1.30) mg/dL Est Cr Clr Drug Dosing 107.84 Estimated GFR (MDRD) > 60 Glucose 98 (70-99) mg/dL Lactic Acid 1.2 (0.4-2.0) mmol/L Calcium 8.4 L (8.5-10.1) mg/dL Corrected Calcium 8.8 (8.5-10.1) mg/dL Phosphorus (2.6-4.7) mg/dL Magnesium (1.8-2.4) mg/dL Total Bilirubin 0.6 (0.2-1.0) mg/dL AST 34 (15-37) U/L ALT 50 (16-63) U/L Alkaline Phosphatase 51 (46-116) U/L Creatine Kinase 648 H* (39-308) U/L Troponin I High Sens 315 H* (<=76) ng/L C-Reactive Protein (<=0.9) mg/dL NT-Pro-B Natriuret Pep (<=125) pg/mL Total Protein 6.6 (6.4-8.2) g/dL Albumin 3.5 (3.4-5.0) g/dL Globulin 3.1 Albumin/Globulin Ratio 1.13 Procalcitonin (0.1-0.50) ng/mL TSH, Ultra Sensitive (0.358-3.74) uIU/mL Urine Color (YELLOW) Urine Appearance (CLEAR) Urine pH (5.0-8.0) Ur Specific [place] Urine Protein (NEGATIVE) mg/dL Urine Glucose (UA) (NEGATIVE) mg/dL Urine Ketones (NEGATIVE) mg/dL Urine Occult Blood (NEGATIVE) Urine Nitrite (NEGATIVE) Urine Bilirubin (NEGATIVE) Urine Urobilinogen (0.2) EU/dL Ur Leukocyte Esterase (NEGATIVE) Urine Opiates Screen (NEGATIVE) Ur Buprenorphine Scrn (NEGATIVE) Ur Oxycodone Screen (NEGATIVE) Urine Methadone Screen (NEGATIVE) Ur Barbiturates Screen (NEGATIVE) Ur Phencyclidine Scrn (NEGATIVE) Ur Amphetamine Screen (NEGATIVE) U Methamphetamines Scrn (NEGATIVE) Urine MDMA Screen (NEGATIVE) U Benzodiazepines Scrn (NEGATIVE) U Cocaine Metab Screen (NEGATIVE) U Marijuana (THC) Screen (NEGATIVE) SARS CoV-2 RNA Rapid ANNA (NEGATIVE) Med Orders - Current: Current Medications Sodium Chloride (Sodium Chloride 0.9% 10 Ml Syringe) 10 ml FLUSH ASDIRECTED PRN PRN Reason: Keep Vein Open Discontinued Medications Sodium Chloride (Normal Saline) 1,000 mls @ 1,000 mls/hr IV ASDIRECTED PETER Last Admin: 10/30/20 11:22 Dose: 1,000 mls/hr Documented by: Lactated Ringer's (Ringers, Lactated) 1,000 mls @ 1,000 mls/hr IV ONETIME ONE Stop: 10/30/20 12:50 Last Admin: 10/30/20 12:07 Dose: 1,000 mls/hr Documented by: Sodium Chloride (Normal Saline) 1,000 mls @ 175 mls/hr IV ASDIRECTED PETER Last Admin: 10/31/20 08:16 Dose: 175 mls/hr Documented by: Lorazepam (Lorazepam 2 Mg/Ml Sdv) 1 mg IVPUSH STAT ONE Stop: 10/30/20 11:19 Last Admin: 10/30/20 11:22 Dose: 1 mg Documented by: Morphine Sulfate (Morphine 4 Mg/Ml Syringe) 4 mg IVPUSH ONETIME ONE Stop: 10/30/20 11:19 Last Admin: 10/30/20 11:22 Dose: 4 mg Documented by: - Exam General: Reports: Alert, Oriented, Cooperative, No Acute Distress HEENT: Reports: Pupils Equal, Mucous Membr. Moist/[place] Neck: Reports: Supple Lungs: Reports: Clear to Auscultation, Normal Respiratory Effort Cardiovascular: Reports: Regular Rate, Regular Rhythm GI/Abdominal Exam: Normal Bowel Sounds, Soft, Non-Tender Back Exam: Reports: Normal Inspection, Full Range of Motion Skin: Reports: Warm, Dry Psy/Mental Status: Reports: Alert, Normal Affect, Normal Mood
== END 2020-10-31 12:32 | disposition home or self-care (01) | DRG 281 ==
LOC: VM.ED 10:55 → VM.MS 12:41
PROVIDERS: ADMIT Family Medicine; ATTEND Family Medicine
DX: I21.4 Non-ST elevation (NSTEMI) myocardial infarction (principal); M62.82 Rhabdomyolysis; N17.9 Acute kidney failure, unspecified; E87.2 Acidosis; Z20.822 Contact with and (suspected) exposure to COVID-19
CPT/HCPCS: 36415; 80053; 80305-QW; 81003; 82550; 83605; 83735; 83880; 84100; 84145; 84443; 84484; 85025; 85610; 85730; 86140; 86480; 87529; 93010; 96374; 96375; 99284; 99285-25; J2060; J2270; J7030; J7120; U0002

== ENCOUNTER 2021-07-06 21:09 | Emergency (ER) | payer MEDICAID ==
[2021-07-06] MEDS ORDERED: RABIES IMMUNE GLOBULIN 300 UNIT/ML IM ONE (21:21)
[2021-07-06] MEDS ORDERED: Rabies Vaccine, Human Diploid Cell PF 2.5 Unit SDV IM ONE (21:24)
[2021-07-06] MEDS ORDERED: Take Home: Amoxicillin/Clavulanate K 875-125 MG Tab, 2 Tab Pack PO ONE (21:24)
[2021-07-06] MEDS ORDERED: Rabies Vaccine (Avian) 2.5 Unit Inj Kit IM ONE (22:15)
== END 2021-07-06 22:40 | disposition home or self-care (01) ==
LOC: VM.ED 21:09
DX: S61.451A Open bite of right hand, initial encounter (principal); Z23 Encounter for immunization; W54.0XXA Bitten by dog, initial encounter
CPT/HCPCS: 90471; 90675; 99283; A9270-GY